=== PATIENT | female | born 1965 | race Caucasian/White ===

== ENCOUNTER 2020-05-03 08:52 | Outpatient (REF) | payer BC, SELFPAY | END 2020-05-03 08:53 | disposition home or self-care (01) | LOC: HO.LAB 08:52 | PROVIDERS: PCP Physician Assistant Medical; Visit Provider Internal Medicine | DX: Z20.828 Contact with and (suspected) exposure to other viral communicable diseases (principal) | CPT/HCPCS: C9803; U0003 ==

== ENCOUNTER 2020-06-27 | Outpatient (REF) | payer BC, SELFPAY | END 2020-06-27 00:01 | disposition home or self-care (01) | LOC: HO.VC | PROVIDERS: Visit Provider Internal Medicine | DX: Z23 Encounter for immunization (principal) | CPT/HCPCS: 0011A ==

== ENCOUNTER 2020-07-18 10:03 | Outpatient (REF) | payer BC, SELFPAY ==
[2020-07-18 14:13] LABS: Estimated Average Glucose 108 mg/dL; Hemoglobin A1c % 5.4 %
== END 2020-07-18 10:04 | disposition home or self-care (01) ==
LOC: HO.10HDL 10:03
PROVIDERS: Visit Provider Physician Assistant Medical
DX: R73.09 Other abnormal glucose (principal)
CPT/HCPCS: 36415; 83036

== ENCOUNTER 2020-07-24 | Outpatient (REF) | payer BC, SELFPAY | END 2020-07-24 00:01 | disposition home or self-care (01) | LOC: HO.VC | PROVIDERS: Visit Provider Internal Medicine | DX: Z23 Encounter for immunization (principal) | CPT/HCPCS: 0012A ==

== ENCOUNTER 2021-05-16 | Outpatient (REF) | payer OTHER, SELFPAY | END 2021-05-16 00:01 | disposition home or self-care (01) | LOC: HO.LAB | PROVIDERS: Visit Provider Internal Medicine | DX: Z13.89 Encounter for screening for other disorder (principal) | CPT/HCPCS: 36415; 87635; C9803 ==

== ENCOUNTER 2021-06-18 12:30 | Outpatient (REF) | payer BC, SELFPAY ==
[2021-06-18 12:52] LABS: Binax Internal Control QC Valid; Binax Now Covid-19 Ag Negative (Negative)
== END 2021-06-18 12:31 | disposition home or self-care (01) ==
LOC: HO.LAB 12:30
PROVIDERS: PCP Physician Assistant Medical; Visit Provider Internal Medicine
DX: Z20.822 Contact with and (suspected) exposure to COVID-19 (principal)
CPT/HCPCS: C9803

== ENCOUNTER 2021-12-25 10:13 | Outpatient (REF) | payer SELFPAY ==
--- NOTE | 2021-12-25 11:11 | MHC.AU.HFU ---
Hearing Instrument Follow-Up- Binaural Date of Visit: 12/25/21 Right Ear: Rod Puller And Coiler: Phonak Model: Michelle P70-UP Serial Number: [id number] Repair Warranty: 11/09/2024 Loss and Damage Warranty: 11/09/2024 Battery Size: 13 Type of Mold: Microsonic shell mold Left Ear: Rod Puller And Coiler: Phonak Model: Michelle P70-UP Serial Number: [id number] Repair Warranty: 11/09/2024 Loss and Damage Warranty: 11/09/2024 Battery Size: 13 Type of Mold: Microsonic shell mold Type of Wax Guard: Follow-Up Summary: Patient reports she has switched back to her old left mold, as the newer left mold was causing pain and sores in the helix area. It is still under warranty. A new impression was taken of the left ear and sent to [employer] for remake. She also reports the right hearing aid has suddenly been sounding higher pitched and tinny. Both hearing aids inspected. Molds were cleaned and retubed. Listening check shows the right hearing aid sounds distorted. It was sent to [facility] [employer] for repair. Patient was provided with a loaner for the right ear (Phonak Michelle P70-UP Trial #[id number]). Recommendations: Patient can be contacted as soon as each piece arrives, as the hearing aid repair will likely come in several weeks before the mold remake. Diagnosis Code(s): Primary Diagnosis: H90.3 Bilateral Sensorineural Hearing Loss Signature: Provider: Jamil Adams, STACE[facility]-A
== END 2021-12-25 10:14 | disposition home or self-care (01) ==
LOC: HO.HAP 10:13
PROVIDERS: Visit Provider Physician Assistant Medical
DX: Z13.89 Encounter for screening for other disorder (principal)

== ENCOUNTER 2022-02-05 11:43 | Outpatient (REF) | payer SELFPAY | END 2022-02-05 11:44 | disposition home or self-care (01) | LOC: HO.HAP 11:43 | PROVIDERS: Visit Provider Physician Assistant Medical | DX: Z13.89 Encounter for screening for other disorder (principal) ==

== ENCOUNTER 2022-02-21 10:02 | Outpatient (REF) | payer SELFPAY ==
--- NOTE | 2022-02-21 15:20 | MHC.AU.HFU ---
Hearing Instrument Follow-Up- Binaural Date of Visit: 02/21/22 Right Ear: Property Underwriter: Phonak Model: Michelle P70-UP Serial Number: [id number] Repair Warranty: 11/09/2024 Loss and Damage Warranty: 11/09/2024 Battery Size: 13 Color: P1 - Sand beige Type of Mold: Microsonic shell mold Dispensed By: [facility] Date of Fittin09/13/2021 Left Ear: Property Underwriter: Phonak Model: Michelle P70-UP Serial Number: [id number] Repair Warranty: 11/09/2024 Loss and Damage Warranty: 11/09/2024 Battery Size: 13 Color: P1 - Sand beige Type of Mold: Microsonic shell mold Dispensed By: [facility] Date of Fittin09/13/2021 Follow-Up Summary: 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 She noted significant improvement in sound quality of the right hearing aid and comfort of the left ear mold. Her right ear mold was also cleaned and retubed. Recommendations:Hearing instrument maintenance in 6 months, or sooner if needed. Patient will call if problems persist. Diagnosis Code(s): Primary Diagnosis: H90.3 Bilateral Sensorineural Hearing Loss Signature: Provider: Jayy Ma CCC-A
== END 2022-02-21 10:03 | disposition home or self-care (01) ==
LOC: HO.HAP 10:02
PROVIDERS: Visit Provider Physician Assistant Medical
DX: Z13.89 Encounter for screening for other disorder (principal)

== ENCOUNTER 2022-07-10 08:02 | Outpatient (REF) | payer SELFPAY ==
--- NOTE | 2022-07-10 08:36 | MHC.AU.HA3 ---
Hearing Instrument Follow-Up- Binaural Date of Visit: 07/10/22 Right Ear: Darinel, Model, Color, Serial Number: Oscar Martinez P 70-UP Maeve Gurrola #[id number] Flight Attendant Repair Warranty: 11/09/2024 [employer] Loss and Damage Warranty: 11/09/2024 [facility] Service Plan: 09/13/2022 Battery Size: 13 Earmold/Dome/CShell/SlimTip:Microsonic shell mold Dispensed By: [facility] Date of Fittin09/13/2021 Left Ear: Make, Model, Color, Serial Number: Oscar Martinez P 70-UP Maeve Gurrola #[id number] Flight Attendant Repair Warranty: 11/09/2024 Flight Attendant Loss and Damage Warranty: 11/09/2024 [facility] Service Plan: 09/13/2022 Battery Size: 13 Earmold/Dome/CShell/SlimTip: Microsonic shell mold Dispensed By: [facility] Date of Fittin09/13/2021 Follow-Up Summary: Fit the new right earmold and patient paid $135.00. She will be using this as a back-up. See note from 07/07/2022 for details. Cleaned both aids, changed tubing. The left earhook broke during the tubing change and was replaced today. Patient was t old today her service agreement ends on 09/13/2022. Provided her the service fee handout and she will consider purchasing the 3 year services agreement. Another maintenance/tubing change appointment was scheduled for 08/27/2022. Recommendations: Please contact our clinic with any questions or concerns. Diagnosis Code(s):Primary Diagnosis: H90.3 Bilateral Sensorineural Hearing Loss Signature:Provider: Humberto Horowitz, [facility]
== END 2022-07-10 08:03 | disposition home or self-care (01) ==
LOC: HO.HAP 08:02
PROVIDERS: Visit Provider Physician Assistant Medical
DX: Z46.1 Encounter for fitting and adjustment of hearing aid (principal); H90.3 Sensorineural hearing loss, bilateral
CPT/HCPCS: V5264

== ENCOUNTER 2022-08-27 08:27 | Outpatient (REF) | payer SELFPAY ==
--- NOTE | 2022-08-27 09:34 | MHC.AU.HFU ---
Hearing Instrument Follow-Up- Binaural Date of Visit: 08/27/22 Right Ear: Phonak Michelle P 70-UP Maeve Beige #[id number] Repair Warranty: 11/09/2024 Loss and Damage Warranty: 11/09/2024 Service Plan: 09/13/2022 Battery Size: 13 Type of Mold: Microsonic shell mold Dispensed By: [facility] Date of Fittin09/13/2021 Left Ear: Phonak Michelle P 70-UP Maeve Beige #[id number] Repair Warranty: 11/09/2024 Loss and Damage Warranty: 11/09/2024 Service Plan: 09/13/2022 Battery Size: 13 Type of Mold: Microsonic shell mold Dispensed By: [facility] Date of Fittin09/13/2021 Follow-Up Summary: Alivia is here for a tubing change before her service plan expires. She has noted some intermittency from her hearing aids, but believes it is due to the hardened tubing. I re-tubed both ear molds, brushed and wiped the hearing aids and microphone ports. Listening check reveals clear sound. Alivia reported improved sound percept and was happy with today's visit. We should send out the hearing aids for repair should the intermittency persists. Alivia indicated understanding. Additional follow-up as needed. Diagnosis Code(s): Primary Diagnosis: H90.3 Bilateral Sensorineural Hearing Loss Signature: Provider: Jamil Bullock, [facility]
== END 2022-08-27 08:28 | disposition home or self-care (01) ==
LOC: HO.HAP 08:27
PROVIDERS: Visit Provider Physician Assistant Medical
DX: Z13.89 Encounter for screening for other disorder (principal)

== ENCOUNTER 2023-12-03 12:58 | Outpatient (REF) | payer BC, SELFPAY ==
--- NOTE | ~2023-12-03 | US_ITS ---
EXAMINATION: US SOFT TISSUE OF THE NECK CLINICAL INFORMATION: Neck nodule. COMPARISON: None available. TECHNIQUE: Linear transducer grayscale and color Doppler examination of the left neck, posterior lateral, nape of neck and lateral neck. FINDINGS: There is a 1.0 x 0.4 x 0.8 cm small lymph node seen posteriorly in the neck with an additional small lymph node measuring 1.1 x 0.3 x 0.8 cm laterally. Both of these nodes have normal fatty cara. US/US soft tiss head and/or neck IMPRESSION: Small benign-appearing lymph nodes in the neck.
== END 2023-12-03 12:59 | disposition home or self-care (01) ==
LOC: HO.US 12:58
PROVIDERS: PCP Internal Medicine; Visit Provider Internal Medicine
DX: R22.1 Localized swelling, mass and lump, neck (principal)
CPT/HCPCS: 76536

== ENCOUNTER 2024-02-29 10:54 | Outpatient (REF) | payer BC, SELFPAY ==
[2024-02-29 10:58] LABS: MANUAL DIFF FLAG NO
[2024-02-29 11:13] LABS: Basophils Percent Auto 0.4 % (0-2); Eosinophils Absolute Auto 0.1 X10*3/uL (0.0-0.4); Eosinophils Percent Auto 2.1 % (0-4); Hematocrit 40.7 % (37.0-47.0); Hemoglobin 13.7 g/dl (12.0-16.0); Imm Gran Abs Auto 0.02 X10*3/uL (0.00-0.03); Imm Gran Pct Auto 0.4 % (0.0-0.4); Lymphocytes Absolute Auto 1.8 X10*3/uL (1.2-4.9); Lymphocytes Percent Auto 34.6 % (20-40); Mean Corpuscular HGB Conc 33.7 g/dl (31.0-35.0); Mean Corpuscular Hemoglobin 30.4 pg (27.0-33.0); Mean Corpuscular Volume 90.4 fL (80.0-98.0); Mean Platelet Volume 11.7 fL (9.4-12.3); Monocytes Absolute Auto 0.5 X10*3/uL (0.1-1.2); Monocytes Percent Auto 9.3 % (2-11); Neutrophils Absolute Auto 2.8 x10*3/uL (2.0-8.3); Neutrophils Percent Auto 53.2 % (45-73); Platelet Count 166 X10*3/uL (160-400); Red Cell Distribution Width 12.6 % (11.0-16.0); White Blood Count 5.2 X10*3/uL (4.8-10.8)
[2024-02-29 11:26] LABS: Alanine Aminotransferase 17 U/L (0-31); Alkaline Phosphatase 56 U/L (39-117); Anion Gap 12 (12-20); Aspartate Amino Transferase 17 U/L (5-31); Bilirubin Total 0.5 mg/dL (0.0-1.0); Blood Urea Nitrogen 16 mg/dL (9-16); Calcium 9.2 mg/dL (8.4-10.2); Carbon Dioxide 25 mmol/L (22-29); Chloride 107 mmol/L (96-108); Cholesterol 210 mg/dL (<200); Estimated Glomerular Filt Rate > 60; Glucose Fasting 108 mg/dL (60-99); HDL Cholesterol 53 mg/dL (>40); LDL Cholesterol Calculated 142 mg/dL (<100); Potassium 3.9 mmol/L (3.3-5.1); Sodium 140 mmol/L (135-145); Total Protein 6.7 g/dL (6.5-8.0); Triglycerides 77 mg/dL (<150)
[2024-02-29 11:27] LABS: Appearance Urine Clear; Color Urine Yellow; Glucose Urine UA Negative (Negative); Leukocyte Esterase Urine Negative (Negative); Nitrite Urine Negative (Negative); PH 5.5 (5.0-9.0); Specific Gravity - Urine >= 1.030 (1.005-1.025); Urine Blood Negative (Negative); Urine Ketones Negative (Negative); Urine Protein Negative (Neg-Trace)
[2024-02-29 11:36] LABS: Bacteria Urine None Seen (None Seen); Hyaline Casts Urine 0-2 /LPF (0-2); RBC Urine 0-2 /HPF (0-2); WBC Urine 0-5 /HPF (0-5)
== END 2024-02-29 10:55 | disposition home or self-care (01) ==
LOC: HO.LNP 10:54
PROVIDERS: Visit Provider Internal Medicine
DX: Z00.00 Encounter for general adult medical examination without abnormal findings (principal)
CPT/HCPCS: 80053; 80061; 81001; 85025

== ENCOUNTER 2024-11-03 08:30 | Outpatient (REF) | payer SELFPAY ==
--- OUTSIDE RECORDS SUMMARY | 2024-11-03 08:42 | XMS_ITS ---
Author Organization Darrian Kelsey MD Address [address] [facility] [address] [place] [phone] Care Team Providers Care Technical Manager Name Role Phone Darrian Kelsey Primary Care Provider REASON FOR VISIT referral Encounters Encounter Location Date Provider Diagnosis Darrian Kelsey MD [address] [place] [address] [place] [phone] 06/14/2024 Darrian Kelsey Plan Of Treatment Next Appt Details Provider Name:Darrian Gasca ier, 02/28/2025 07:00:00 AM, [address] [place] [address], [address], [phone], Provider Name:Darrian Gasca ier, 03/07/2025 08:30:00 AM, [address] [place] [address], [address], [phone], Progress Notes * Marco CASTROOB:1965 (58 yo F)Acc No.[id number]:06/14/2024 Patient:?Alivia CASTRO :1965???Age:58 Y???Sex:Female [address] [facility] [address] * true * Date:? Generated for Printi ng/Faxing/eTransmitting on:?11/03/2024 08:42 AM EDT
--- NOTE | 2024-11-03 10:21 | MHC.AU.HA3 ---
Hearing Instrument Follow-Up- Binaural Date of Visit: 11/03/24 Right Ear: Make, Model, Color, Serial Number: Oscar Jiida P 70-UP SN: [id number] Color: Sand Beige Protective Signal Installer Repair Warranty: 11/09/2024 Protective Signal Installer Loss and Damage Warranty: 11/09/2024 [facility] Service Plan: 09/13/2022 Battery Size: 13 Earmold/Dome/CShell/SlimTip:Microsonic shell mold Dispensed By: [facility] Date of Fittin09/13/2021 Left Ear: Make, Model, Color, Serial Number: Oscar Michelle P 70-UP SN: [id number] Color: Sand Beige Protective Signal Installer Repair Warranty: 11/09/2024 Protective Signal Installer Loss and Damage Warranty: 11/09/2024 [facility] Service Plan: 09/13/2022 Battery Size: 13 Earmold/Dome/CShell/SlimTip: Microsonic shell mold Dispensed By: [facility] Date of Fittin09/13/2021 Follow-Up Summary: Needs new EMs, current pair discolored and ripped around canal portion. Has been re-tubing herself at home. Showed kj FLORES; agreeable to changing EM stuffed casing tier for quicker turn-around time. Impressions taken, bilaterally, without incident. Sent to [facility]. Alivia also inquired about new HAs, does not like this pair. Reportedly friends/family tell her she is missing a lot with these HAs. Unsure if hearing has changed. Recommended updated hearing test, last tested 2020. Recommendations: Patient will be contacted when materials have arrived. Diagnosis Code(s): Primary Diagnosis: H90.3 Bilateral Sensorineural Hearing Loss Signature: Provider: Humberto Bull, [facility]
== END 2024-11-03 08:31 | disposition home or self-care (01) ==
LOC: HO.HAP 08:30
PROVIDERS: Visit Provider Internal Medicine
DX: Z13.89 Encounter for screening for other disorder (principal)

== ENCOUNTER 2024-11-17 08:36 | Outpatient (AMB) | payer BC, SELFPAY ==
--- OUTSIDE RECORDS SUMMARY | 2024-06-14 11:27 | XMS_ITS ---
Author Organization Darrian Kelsey MD Address [address] [place] [address] [place] [phone] Care Team Providers Care Watershed Coordinator Name Role Phone Darrian Kelsey Primary Care Provider [phone] REASON FOR VISIT referral Encounters Encounter Location Date Provider Diagnosis Darrian Kelsey MD [address] [place] [address] [place] [address] [phone] 06/14/2024 Darrian Kelsey Plan Of Treatment Next Appt Details Provider Name:Darrian Gasca ier, 02/28/2025 07:00:00 AM, [address] [place] [address], [address], [phone], Provider Name:Darrian Gasca ier, 03/07/2025 08:30:00 AM, [address] [place] [address], [address], [phone], Progress Notes * Marco CASTROOB:1965 (58 yo F)Acc No.[id number]:06/14/2024 Patient: Roselia Alivia RUSSELL :1965 A ge:58 Y S ex:Female [address] [facility] [place] [address] * true * Date: Generated for Printi ng/Faxing/eTransmitting on: 0 11/17/2024 09:01 AM EDT
--- NOTE | 2024-11-17 08:39 | MHC.OFFVIS ---
Vital Signs 11/17/24 08:41 Height 5 ft 4.5 in Weight 202 lb 13.204 oz BMI 34.3 BP 110/72 Blood Pressure Location Lt brachial Position Sitting Pulse 86 Pulse Source Pulse Oximeter Pulse Oximetry (%) 96 Oxygen Delivery Method Room Air Intake Visit Reasons: Asthma Behavioral Interventionist Required: No Accompanied by: Self / Same As Patient Allergies cephalexin (From Keflex) Allergy (Intermediate, Verified 11/17/24 08:42) vomiting HPI Comments Details: The patient is here for pulmonary evaluation. The patient is a 59 year woman with a known history of asthma presenting with worsening respiratory symptoms. She has been noticing worsening shortness of breath even with minimal activity. She has a hard time with her grandchildren playing with them because she gets very winded. She does have asthma and she does have a rescue inhaler. Currently she is not on a maintenance inhaler. Sometime ago she was told that she had glaucoma. She has not followed up with the eye doctor in many years. She has lost some vision. Therefore will hold off on using any anticholinergics. The patient does have wheezing on exam and she did have tachycardia upon brief walking oximetry. She did have a chest x-ray back in 2019 that I personally reviewed demonstrating no acute disease. In addition to that she has not had pulmonary function studies although she has had difficult time in the past. In addition to that she has did complain of daytime drowsiness. Patient does have an elevated [place] score of 11/24. Therefore she needs to have home sleep study. The patient does have increased cardiovascular risk factors specially with her breathing and also tachycardia. Go ahead and request a home sleep study also PFTs and a chest x-ray. The patient will also undergo blood work. Also to note that she is getting allergy shots. She had been getting allergy shots for many years. Will go ahead and check her allergy levels. She may be a candidate for biologics if she continues to be symptomatic even on maximum respiratory therapy. REPLACED BY [facility] Medical History (Updated 11/17/24 @ 22:37 by Nigel Hamilton MD) DEBI (obstructive sleep apnea) Allergies Asthma Social History (Updated 11/17/24 @ 08:44 by Ro Pate CMA) Patient Tobacco Use Status: Never used Tobacco Review of Systems Const Reports daytime sleepiness, Reports difficulty sleeping and Reports snoring Eyes Reports change in vision ENT Reports nasal discharge Card Denies chest pain and Reports dyspnea on exertion Resp Reports cough, Reports dyspnea on exertion, Reports snoring and Reports wheezing GI Reports no additional complaints Musc Reports myalgias Skin/Breast Denies rash Neuro Reports no additional complaints Anthony/Lymph Reports no additional complaints Aller/Immun Reports wheezing Physical Exam Vital Signs: Last Vital Signs Pulse 86 11/17/24 08:41 BP 110/72 11/17/24 08:41 Pulse Ox 96 11/17/24 08:41 Oxygen Delivery Method Room Air 11/17/24 08:41 BMI result Body Mass Index 34.3 Const General: comfortable HEENT Head: Yes normocephalic Neck Neck: Yes supple Chest Chest palpation & inspection: normal inspection of the chest Resp Effort & Inspection: prolonged expiratory phase Auscultation: wheezes and diminished lung sounds Cardio Heart sounds: S1 normal heart sound present and S2 normal heart sound present GI Palpation (GI): Soft to palpation Skin General skin exam: no rashes or lesions noted Extrem General: Yes no clubbing, cyanosis or edema Assessment & Plan Assessment & Plan (1) Asthma: Code(s): J45.909 - Unspecified asthma, uncomplicated Category: Medical Qualifiers: Asthma severity: moderate Asthma persistence: persistent Asthma complication type: with acute exacerbation Qualified Code(s): J45.41 - Moderate persistent asthma with (acute) exacerbation (2) Allergies: Code(s): T78.40XA - Allergy, unspecified, initial encounter Category: Medical Qualifiers: Encounter type: initial encounter Qualified Code(s): T78.40XA - Allergy, unspecified, initial encounter (3) DEBI (obstructive sleep apnea): Code(s): G47.33 - Obstructive sleep apnea (adult) (pediatric) Category: Medical Plan Home PSG PFTs CXR Start Symbicort No LAMA/MARISOL due to h/o glaucoma bloodwork F/U 2-3 months Orders: Orders Complete Blood Count Auto Diff Today J45.909 - Unspecified asthma, uncomplicated, T78.40XA - Allergy, unspecified, initial encounter Basic Metabolic Panel Today J45.909 - Unspecified asthma, uncomplicated, T78.40XA - Allergy, unspecified, initial encounter Hypersensitive Pneumonitis Prf Today J45.909 - Unspecified asthma, uncomplicated, R91.8 - Other nonspecific abnormal finding of lung field, T78.40XA - Allergy, unspecified, initial encounter Immunoglobulin E Today J45.909 - Unspecified asthma, uncomplicated, T78.40XA - Allergy, unspecified, initial encounter RT home sleep study Today G47.33 - Obstructive sleep apnea (adult) (pediatric), J45.909 - Unspecified asthma, uncomplicated, T78.40XA - Allergy, unspecified, initial encounter AMB Hemoglobin A1c Today J45.909 - Unspecified asthma, uncomplicated, T78.40XA - Allergy, unspecified, initial encounter, Z13.9 - Encounter for screening, unspecified XR chest 2V Today G47.33 - Obstructive sleep apnea (adult) (pediatric), J45.909 - Unspecified asthma, uncomplicated, T78.40XA - Allergy, unspecified, initial encounter PFT pulmonary function test Today G47.33 - Obstructive sleep apnea (adult) (pediatric), J45.909 - Unspecified asthma, uncomplicated, T78.40XA - Allergy, unspecified, initial encounter Medications: New budesonide-formoterol 160-4.5 mcg/actuation (Symbicort) 2 puffs inhalation BID 10.2 grams 11RF 30 days J44.89 - Other specified chronic obstructive pulmonary disease Coding Level of Care Code New Pt Level 4 (39473) Diagnoses Moderate persistent asthma with acute exacerbation J45.41 Asthma severity: moderate Asthma persistence: persistent Asthma complication type: with acute exacerbation Allergy, initial encounter T78.40XA Encounter type: initial encounter DEBI (obstructive sleep apnea) G47.33 Time Spent (min) 40
[2024-11-17 08:41] VITALS: BP 110/72; PULSE 86; O2SAT 96; BMI 34.3
== END 2024-11-17 09:13 | disposition home or self-care (01) ==
LOC: HO.HPS 08:37
PROVIDERS: PCP Internal Medicine; Visit Provider Hospitalist
DX: J45.41 Moderate persistent asthma with (acute) exacerbation (principal); T78.40XA Allergy, unspecified, initial encounter; G47.33 Obstructive sleep apnea (adult) (pediatric)
CPT/HCPCS: 99204

== ENCOUNTER 2024-11-17 09:22 | Outpatient (REF) | payer BC, SELFPAY ==
--- NOTE | ~2024-11-17 | XR_ITS ---
EXAMINATION: XR CHEST CLINICAL INFORMATION: G47.33 - Obstructive sleep apnea (adult) (pediatric) COMPARISON: None available. TECHNIQUE: 2 views of the chest were obtained. FINDINGS: The cardiac, hilar, and mediastinal contours are normal. The lungs are clear bilaterally. There is no pneumothorax or pleural effusion. There is no focal osseous or soft tissue abnormality. XR/XR chest 2V IMPRESSION: No active pulmonary disease. Normal examination Electronically signed by: Christos Boudreaux MD 11/17/2024 09:47 AM EDT
== END 2024-11-17 09:23 | disposition home or self-care (01) ==
LOC: HO.XRAY 09:22
PROVIDERS: PCP Internal Medicine; Visit Provider Hospitalist
DX: G47.33 Obstructive sleep apnea (adult) (pediatric) (principal); T78.40XA Allergy, unspecified, initial encounter; J45.909 Unspecified asthma, uncomplicated
CPT/HCPCS: 71046

== ENCOUNTER → 2024-11-17 09:23 | Outpatient (BNV) | payer BC, SELFPAY | PROVIDERS: PCP Internal Medicine; Visit Provider Radiology Diagnostic Radiology | DX: G47.33 Obstructive sleep apnea (adult) (pediatric) (principal) | CPT/HCPCS: 71046 ==

== ENCOUNTER 2024-11-17 09:38 | Outpatient (REF) | payer BC, SELFPAY ==
[2024-11-17 13:11] LABS: MANUAL DIFF FLAG NO
[2024-11-17 13:18] LABS: Basophils Percent Auto 0.5 % (0-2); Eosinophils Absolute Auto 0.1 X10*3/uL (0.0-0.4); Eosinophils Percent Auto 1.9 % (0-4); Hematocrit 41.6 % (37.0-47.0); Imm Gran Abs Auto 0.01 X10*3/uL (0.00-0.03); Imm Gran Pct Auto 0.2 % (0.0-0.4); Lymphocytes Absolute Auto 1.5 X10*3/uL (1.2-4.9); Lymphocytes Percent Auto 24.8 % (20-40); Mean Corpuscular HGB Conc 33.7 g/dl (31.0-35.0); Mean Corpuscular Hemoglobin 30.4 pg (27.0-33.0); Mean Corpuscular Volume 90.2 fL (80.0-98.0); Mean Platelet Volume 11.4 fL (9.4-12.3); Monocytes Absolute Auto 0.5 X10*3/uL (0.1-1.2); Neutrophils Absolute Auto 3.8 x10*3/uL (2.0-8.3); Neutrophils Percent Auto 64.6 % (45-73); Platelet Count 189 X10*3/uL (160-400); Red Blood Count 4.61 X10*6/uL (4.20-5.50); Red Cell Distribution Width 12.3 % (11.0-16.0); White Blood Count 5.9 X10*3/uL (4.8-10.8)
[2024-11-17 13:40] LABS: Anion Gap 10 (12-20); Blood Urea Nitrogen 10 mg/dL (9-16); Carbon Dioxide 28 mmol/L (22-29); Chloride 107 mmol/L (96-108); Estimated Glomerular Filt Rate > 60; Glucose Random 99 mg/dL (60-115); Sodium 141 mmol/L (135-145)
[2024-11-18 23:09] LABS: Immunoglobulin E 101 kU/L (<OR=114)
[2024-11-24 14:09] LABS: Asperg fumigatus Precip Abs NEGATIVE (NEGATIVE); Micropoly faeni Abs NEGATIVE (NEGATIVE); Pigeon serum Abs NEGATIVE (NEGATIVE); Saccharo pora viridis Abs NEGATIVE (NEGATIVE); Thermo candidus Abs NEGATIVE (NEGATIVE); Thermoa vulgaris #1 NEGATIVE (NEGATIVE)
== END 2024-11-17 09:39 | disposition home or self-care (01) ==
LOC: HO.10HDL 09:38
PROVIDERS: Visit Provider Hospitalist
DX: J45.909 Unspecified asthma, uncomplicated (principal); T78.40XA Allergy, unspecified, initial encounter; R91.8 Other nonspecific abnormal finding of lung field
CPT/HCPCS: 36415; 80048; 82785; 85025; 86331; 86606; 86609

== ENCOUNTER 2024-12-08 08:25 | Outpatient (REF) | payer SELFPAY ==
--- OUTSIDE RECORDS SUMMARY | 2024-09-08 05:15 | XMS_ITS ---
Author Organization Darrian Kelsye MD Address [address] [place], [place] [phone] Care Team Providers Care Director Of Sustainability Name Role Phone Darrian Kelsye Primary Care Provider Allergies Allergen (clinical drug ingredient) Drug/Non Drug Allergy documented on EMR Reaction Allergy Type Onset Date Status Keflex vomiting Drug Allergy Active 12 Hour Nasal [place] Unknown Drug Allergy Active REASON FOR VISIT 6 MO F/U PRE DM Video [phone], c/o temp 99.5 productive cough,headache, sore throat, [...] Status W/U Status Risk Notes Problem Sinusitis (50435091) Sinusitis (J32.9) Active confirmed Vital Signs Height 64.5 in 09/08/2024 Weight 197 lbs 09/08/2024 BMI 33.29 kg/m2 09/08/2024 weight is 197 BP not taken Encounters Encounter Location Date Provider Diagnosis Darrian Kelsey MD [address] [place] [phone] 09/08/2024 Darrian Kelsey Acute asthma J45.909 and [...] Details Provider Name:Darrian ramos, 02/28/2025 07:00:00 AM, [address] [place] [address], [address], [phone], Provider Name:Darrian ramos, 03/07/2025 08:30:00 AM, [address] [place] [address], [phone], Progress Notes * Marco CASTROOB:1965 (59 yo F)Acc No.[id number]:09/08/2024 Progress Notes Patient: Alivia OMER Provider: Chantelle Kelsey MD :1965 A ge:59 Y S ex:Female Date:09/08/2024 Address:[address], [place] Subjective: * Chief Complaints: * 6 MO F/U PRE DM Video [phone]/o temp 99.5 productive cough,headache, sore throat, muscle pain runny nose, congestion x 5 days did not test for Covid * HPI: S ymptom(s): Telehealth L ocation of provider rendering services: [address], [address], L ocation of patient: [...] 09/08/2024 Generated for Ronel iverson/Silvino/Aspenitting on: 0 12/08/2024 08:29 AM EDT History and Physical Notes * HPI (History of Present Illness) Category Sub-Category Detail Notes Category Not es Symptom(s) Telehealth Location of [facility] rendering services:: [address], [address] patient is a 59 [...]
--- OUTSIDE RECORDS SUMMARY | 2024-12-08 08:29 | XMS_ITS | Patient Health Record ---
Author Organization [facility] Address [address] [place] [address] Care Team Providers Care Technical Professional Name Role Phone David Colon MD Primary Care Provider Unavail able Scott Dejesus Unavailable [phone] Reason For Referral No Information Medications Medication SIG (Take, Route, Fr equency, Duration) Notes Start Date End Date Status NexIUM 20 MG 1 capsule Orally Onc e a day for 30 day(s) 01/05/2013 Active Omeprazole 20 MG 1 capsule Orally Onc e a day for 30 day(s) 08/30/2012 Active Plan Of Treatment No Information Insurance Providers Payer Name Payer Address Payer Phone Subscriber Number Group Number Insured Name Patient Relationship to Insured Coverage Start Date Coverage End Date O [employer] CLAIMS [address] [place] [address] [id number] WERO CASTRO Self - patient is the insured
--- OUTSIDE RECORDS SUMMARY | 2024-12-08 08:29 | XMS_ITS | Clinical Summary ---
Author Organization [facility] [place] [address] Phone Care Team Providers Care Cook Seafood Name Role Phone Oma Rodrigues MD Primary Care Provider [phone] Allergies Active Allergy Reactions Criticality Noted Date Comments Cephalexin GI intolerance 04/29/2024 Medications montelukast (SINGULAIR) 10 mg tablet Take 1 tablet (10 mg total) by mouth at bedtime. Active citalopram (CeleXA) 10 mg tablet Take 1 tablet (10 mg total) by mouth 1 (one) time each day. Active albuterol HFA (PROAIR HFA ; PROVENTIL HFA ; VENTOLIN HFA) 90 mcg/actuation inhaler Inhale 2 puffs by mouth every 6 (six) hours if needed for wheezing. Active Surgical History Surgery Date Site/Laterality Comments COLONOSCOPY Medical History Medical History Date Comments Asthma Family History Medical History Relation Name Comments Colon cancer Maternal Grandfather Relation Name Status Comments Maternal Grandfather Social History Tobacco Use Types Packs/Day Years Used Date Smoking Tobacco: Never Smokeless Tobacco: Never Tobacco Cessation:Counseling Given: Not Answered Alcohol Use Standard Drinks/Week Comments Not Currently 0 (1 standard drink = 0.6 oz pur e alcohol) socially Interpersonal Safety Answer Date Record ed Physical Abuse 05/06/2024 Verbal Abuse 05/06/2024 Comments No Sex and Gender Information Value Date Recorded Sex Assigned at Female 04/29/2024 12:13 PM EST Legal Sex Female 11:39 AM EST Gender Identity Not on file Sexual Orientation Not on file Obstetrics History Last Filed Vital Signs Vital Sign Reading Time Taken Comments Blood Pressure 115/71 05/06/2024 2:19 PM EST Pulse 86 05/06/2024 2:19 PM EST Temperature 36.5 C (97.7 F) 05/06/2024 1:29 PM EST Respiratory Rate 22 05/06/2024 2:19 PM EST Oxygen Saturation 97% 05/06/2024 2:19 PM EST Inhaled Oxygen Concentration - - Weight 88 kg (194 lb) 05/06/2024 1:29 PM EST Height 162.6 cm (5' 4 ) 05/06/2024 1:29 PM EST Body Mass Index 33.3 05/06/2024 1:29 PM EST Plan of Treatment Health Maintenance Due Date Last Done Comments Breast Cancer Screening 1965 DTaP,Tdap,and Td Vaccines (1 - Tdap) 08/05/1982 Cervical Cancer Screening: P ap Smear 08/05/1984 Pneumococcal Vaccine: 50+ Ye ars (1 of 1 - PCV) 08/05/2013 Zoster Vaccines (1 of 2) 08/05/2013 COVID-19 Vaccine ( - 2023-2 5 season) 2024 HIV Screening 03/12/2024 Hepatitis C Screening 03/12/2024 Social Influencers of Health Screening 03/12/2024 Depression Screening 05/25/2024 Influenza Vaccine (#1) 2025 Colorectal Cancer Screening: Colonoscopy 05/06/2034 05/06/2024 RSV Immunization Adult Patie nts (1 - 1-dose 75+ series) 08/05/2038 HIB Vaccines Aged Out No longer eligi ble based on patient's age to complete this topic HPV Vaccines Aged Out No longer eligi ble based on patient's age to complete this topic Hepatitis A Vaccines Aged Out No long er eligible based on patient's age to complete this topic Hepatitis B Vaccines Aged Out No long er eligible based on patient's age to complete this topic IPV Vaccines Aged Out No longer eligi ble based on patient's age to complete this topic MMR Vaccines Aged Out No longer eligi ble based on patient's age to complete this topic Meningococcal ACWY Vaccine Aged Out N o longer eligible based on patient's age to complete this topic Meningococcal B Vaccine Aged Out No l onger eligible based on patient's age to complete this topic RSV Immunization Patients Un darling 20 months Aged Out No longer eligible b ased on patient's age to complete this topic Varicella Vaccines Aged Out No longer eligible based on patient's age to complete this topic Procedures Procedure Name Priority Date/Time Associated Diagnosis Comments COLONOSCOPY Routine 05/06/2024 1:58 PM EST Encounter for screening for malignant neoplasm of colon from Last 3 Months or Most Recently Relevant to Health Maintenance Results * COLONOSCOPY Anesthesia - MAC; [facility] ENDOSCOPY (05/06/2024 1:58 PM EST) Anatomical Region Laterality Modality Other 05/06/2024 1:34 PM EST Impressions 05/06/2024 1:59 PM EST - The examined portion of the ileum was normal. - Diverticulosis in the sigmoid colon. - Internal hemorrhoids. - No specimens collected. Recommendation: - Repeat colonoscopy in 10 years for screening purposes. Narrative 05/06/2024 1:59 PM EST [facility] GI Patient Name: Alivia Marrufo Procedure Date: 05/06/2024 1:34 PM Date of : 1965 Age: 58 Gender: Female Note Status: Finalized Attending MD: Oma Rodrigues MD, Procedure Date No Time: 05/06/2024 Procedure: Colonoscopy Indications: Screening for colorectal malignant neoplasm Providers: Oma Rodrigues MD Referring MD: Darrian Kelsey MD Medicines: Propofol per Anesthesia Complications: No immediate complications. Estimated Blood Loss: Estimated blood loss: none. Procedure: Pre-Anesthesia Assessment: - ASA Grade Assessment: II - A patient with mild systemic disease. After I obtained informed consent, the scope was passed under direct vision. Throughout the procedure, the patient's blood pressure, pulse, and oxygen saturations were monitored continuously.The Olympus Pediatric Colonosocpe was introduced through the anus and advanced to the terminal ileum. The colonoscopy was performed without difficulty. The patient tolerated the procedure well. The quality of the bowel preparation was excellent. Findings: The perianal and digital rectal examinations were normal. The terminal ileum appeared normal. A few medium-mouthed diverticula were found in the sigmoid colon. Internal hemorrhoids were found during retroflexion. The hemorrhoids were Grade I (internal hemorrhoids that do not prolapse). Procedure Code(s): --- Professional --- G0121, Colorectal cancer screening; colonoscopy on individual not meeting criteria for high risk Diagnosis Code(s): --- Professional --- Z12.11, Encounter for screening for malignant neoplasm of colon CPT copyright 2020 [employer]. All rights reserved. The codes documented in this report are preliminary and upon certified procedural coder review may be revised to meet current compliance requirements. Oma Rodrigues MD 05/06/2024 1:59:00 PM This report has been signed electronically.Oma Rodrigues MD Number of Addenda: 0 Note Initiated On: 05/06/2024 1:34 PM Scope In: Scope Out: Endoscopy Department at [facility] - [address] [place] [phone] Procedure Note Oma Rodrigues MD - 05/06/2024 [facility] GI Patient Name: Alivia Marrufo Procedure Date: 05/06/2024 1:34 PM Date of : 1965 Age: 58 Gender: Female Note Status: Finalized Attending MD: Oma Rodrigues MD, Procedure Date No Time: 05/06/2024 Procedure: Colonoscopy Indications: Screening for colorectal malignant neoplasm Providers: Oma Rodrigues MD Referring MD: Darrian Kelsey MD Medicines: Propofol per Anesthesia Complications: No immediate complications. Estimated Blood Loss: Estimated blood loss: none. Procedure: Pre-Anesthesia Assessment: - ASA Grade Assessment: II - A patient with mild systemic disease. After I obtained informed consent, the scope was passed under direct vision. Throughout theprocedure, the patient's blood pressure, pulse, and oxygen saturations were monitored continuously.The Olympus Pediatric Colonosocpe was introduced through theanus and advanced to the terminal ileum. The colonoscopy was performed without difficulty. The patient tolerated the procedure well. The quality of thebowel preparation was excellent. Findings: The perianal and digital rectal examinations were normal. The terminal ileum appeared normal. A few medium-mouthed diverticula were found in the sigmoid colon. Internal hemorrhoids were found duringretroflexion. The hemorrhoids were Grade I (internal hemorrhoids that do not prolapse). Procedure Code(s): --- Professional --- G0121, Colorectal cancer screening; colonoscopy on individual not meeting criteria for high risk Diagnosis Code(s): --- Professional --- Z12.11, Encounter for screening for malignantneoplasm of colon CPT copyright 2020 [employer]. All rights reserved. The codes documented in this report are preliminary and upon certified procedural coder reviewmay be revised to meet current compliance requirements. Oma Rodrigues MD 05/06/2024 1:59:00 PM This report has been signed electronically.Oma Rodrigues MD Number of Addenda: 0 Note Initiated On: 05/06/2024 1:34 PM Scope In: Scope Out: Endoscopy Department at [facility] - [address] [place] [phone] IMPRESSION: - The examined portion of the ileum was normal. - Diverticulosis in the sigmoid colon. - Internal hemorrhoids. - No specimens collected. Recommendation: - Repeat colonoscopy in 10 years for screening purposes. Oma Rodrigues MD GI~PROCEDURE ORDERABLES Final Result from Last 3 Months or Most Recently Relevant to Health Maintenance Insurance [facility] Care Teams Cook Seafood Relationship Specialty Start Date End Date Oma Rodrigues MD [address] [place] [id number] PCP - General Gastroenterology 04/29/24
== END 2024-12-08 08:26 | disposition home or self-care (01) ==
LOC: HO.HAP 08:25
PROVIDERS: Visit Provider Internal Medicine
DX: Z46.1 Encounter for fitting and adjustment of hearing aid (principal); H90.3 Sensorineural hearing loss, bilateral
CPT/HCPCS: V5264

== ENCOUNTER 2024-12-14 12:57 | Outpatient (REF) | payer BC, SELFPAY ==
--- OUTSIDE RECORDS SUMMARY | 2024-09-08 05:15 | XMS_ITS ---
Author Organization Darrian Kelsey MD Address [address] [place], [place] [phone] Care Team Providers Care Allied Health Instructor Name Role Phone Darrian Kelsey Primary Care Provider [phone] Allergies Allergen (clinical drug ingredient) Drug/Non Drug Allergy documented on EMR Reaction Allergy Type Onset Date Status Keflex vomiting Drug Allergy Active 12 Hour Nasal [place] Unknown Drug Allergy Active REASON FOR VISIT 6 MO F/U PRE DM Video [phone], c/o temp 99.5 productive cough,headache, sore throat, [...] Status W/U Status Risk Notes Problem Sinusitis (83706553) Sinusitis (J32.9) Active confirmed Vital Signs Height 64.5 in 09/08/2024 Weight 197 lbs 09/08/2024 BMI 33.29 kg/m2 09/08/2024 weight is 197 BP not taken Encounters Encounter Location Date Provider Diagnosis Darrian Kelsey MD [address] [place] [phone] 09/08/2024 Darrian Kelsey Acute asthma J45.909 and [...] Details Provider Name:Darrian ramos, 02/28/2025 07:00:00 AM, [address] [place] [address], [address], [phone], Provider Name:Darrian ramos, 03/07/2025 08:30:00 AM, [address] [place] [address], [phone], Progress Notes * Marco CASTROOB:1965 (59 yo F)Acc No.[id number]:09/08/2024 Progress Notes Patient: Alivia OMER Provider: Chantelle Kelsey MD :1965 A ge:59 Y S ex:Female Date:09/08/2024 Address:[address], [place] Subjective: * Chief Complaints: * 6 MO F/U PRE DM Video [phone]/o temp 99.5 productive cough,headache, sore throat, muscle pain runny nose, congestion x 5 days did not test for Covid * HPI: S ymptom(s): Telehealth L ocation of provider rendering services: [address], [address], L ocation of patient: [...] 09/08/2024 Generated for Ronel iverson/Silvino/Aspenitting on: 0 12/14/2024 01:23 PM EDT History and Physical Notes * HPI (History of Present Illness) Category Sub-Category Detail Notes Category Not es Symptom(s) Telehealth Location of [facility] rendering services:: [address], [address] patient is a 59 [...]
[2024-12-14 07:52] VITALS: PULSE 80; O2SAT 96
--- OUTSIDE RECORDS SUMMARY | 2024-12-14 13:23 | XMS_ITS | Clinical Summary ---
Author Organization [facility] Address [address] [place] [address] Phone Care Team Providers Care Community Health Education Coordinator Name Role Phone Oma Rodrigues MD Primary Care Provider [phone] Allergies Active Allergy Reactions Criticality Noted Date [...] Maintenance Results * COLONOSCOPY Anesthesia - MAC; [facility] ENDOSCOPY (05/06/2024 1:58 PM EST) Anatomical Region [...] malignant neoplasm of colon CPT copyright 2020 [employer]. All rights reserved. The codes documented in this report are preliminary and upon interactive developer review may be revised to meet current compliance requirements. Oma Rodrigues MD 05/06/2024 1:59:00 PM This report has been signed electronically.Oma Rodrigues MD Number of Addenda: 0 Note Initiated On: 05/06/2024 1:34 PM Scope In: Scope Out: Endoscopy Department at [facility] - [address] [place] [phone] Procedure Note Oma Rodrigues MD - 05/06/2024 [...] for malignantneoplasm of colon CPT copyright 2020 [employer]. All rights reserved. The codes documented in this report are preliminary and upon interactive developer reviewmay be revised to meet current compliance requirements. Oma Rodrigues MD 05/06/2024 1:59:00 PM This report has been signed electronically.Oma Rodrigues MD Number of Addenda: 0 Note Initiated On: 05/06/2024 1:34 PM Scope In: Scope Out: Endoscopy Department at [facility] - [address] [place] [phone] IMPRESSION: - The examined portion of the ileum was normal. - Diverticulosis in the sigmoid colon. - Internal hemorrhoids. - No specimens collected. Recommendation: - Repeat colonoscopy in 10 years for screening purposes. Oma Rodrigues MD GI~PROCEDURE ORDERABLES Final Result from Last 3 Months or Most Recently Relevant to Health Maintenance Insurance [employer] Care Teams Community Health Education Coordinator Relationship Specialty Start Date End Date Oma Rodrigues MD [address] [place] [id number] PCP - General Gastroenterology 04/29/24
--- OUTSIDE RECORDS SUMMARY | 2024-12-14 13:23 | XMS_ITS | Patient Health Record ---
Author Organization [facility] Address [address] [place] [address] Care Team Providers Care Buttoner Name Role Phone David Colon MD Primary Care Provider Unavail able Scott Dejesus Unavailable [phone] Reason For Referral No Information Medications Medication [...] O [employer] PROFESSIONAL CLAIMS [address] [place] [address] [id number] WERO CASTRO Self - patient is the insured
--- NOTE | 2024-12-14 14:34 | PFT_ITS ---
Flows: FEV1: 85 % of predicted at 2.08 L FVC: 100 % of predicted at 3.15 L FEV1/FVC: 66 % Bronchodilator response: Present Volumes: Total lung capacity: 103 % of predicted at 5.25 L Residual volume: 119 % of predicted at 2.08 L Slow vital capacity: 95 % of predicted at 3.18 L Expiratory reserve volume: 6 % of predicted at 0.05 L Diffusion capacity: Normal Impression: Amja-ye-ybkrjook obstructive ventilatory defect with positive bronchodilator response. Decreased expiratory reserve volume suggests extrathoracic restriction likely secondary to abdominal obesity. MTDD
== END 2024-12-14 12:58 | disposition home or self-care (01) ==
LOC: HO.RESP 12:57
PROVIDERS: PCP Internal Medicine; Visit Provider Hospitalist
DX: G47.33 Obstructive sleep apnea (adult) (pediatric) (principal); T78.40XA Allergy, unspecified, initial encounter; J45.909 Unspecified asthma, uncomplicated
CPT/HCPCS: 94010; 94640; 94727; 94729

== ENCOUNTER → 2024-12-14 14:34 | Outpatient (BNV) | payer BC, SELFPAY | PROVIDERS: PCP Internal Medicine; Visit Provider Internal Medicine Pulmonary Disease | DX: J98.4 Other disorders of lung (principal) | CPT/HCPCS: 94060; 94727; 94729 ==

== ENCOUNTER 2025-02-01 11:45 | Outpatient (AMB) | payer BC, SELFPAY ==
--- OUTSIDE RECORDS SUMMARY | 2024-09-08 05:15 | XMS_ITS ---
Author Organization Darrian Kelsey MD Address [address] [place], [place] [phone] Care Team Providers Care Teletypesetter Monitor Name Role Phone Darrian Kelsey Primary Care Provider Allergies Allergen (clinical drug ingredient) Drug/Non Drug Allergy documented on EMR Reaction Allergy Type Onset Date Status Keflex vomiting Drug Allergy Active 12 Hour Nasal [place] Unknown Drug Allergy Active REASON FOR VISIT 6 MO F/U PRE DM Video [phone], c/o temp 99.5 productive cough,headache, sore throat, muscle pain runny nose, congestion x 5 days did not test for Covid Medications Medication SIG (Take, Route, Frequency, Duration) Notes Start Date End Date Status Montelukast Sodium 10 MG 1 tablet Orally Once a day Active predniSONE 10 MG 1 tablet with food o r milk Orally 4 tabs for 3 days,3tabs for 3 days, 2 tabs for 3 days, and 1 tab for 3 days for 14 days 09/08/2024 Active Citalopram Hydrobromide 10 MG 1 tablet Orally Once a day Active Amoxicillin-Pot Clavulanate 875-125 MG 1 tablet Orally every 12 hrs for 7 days 09/08/2024 Active Albuterol Sulfate HFA 108 (90 Base) MCG/ACT 1 puff as needed Inhalation every 4 hrs 06/30/2023 Active Albuterol Sulfate HFA 108 (90 Base) MCG/ACT 1 puff as needed Inhalation every 4 hrs for 30 days 09/08/2024 Active Levalbuterol Tartrate 45 MCG/ACT 1 puff as needed Inhalation every 6 hrs 06/30/2023 Active Problems Problem Type SNOMED Code ICD Code Onset Dates Problem Status W/U Status Risk Notes Problem Sinusitis (46631143) Sinusitis (J32.9) Active confirmed Vital Signs Height 64.5 in 09/08/2024 Weight 197 lbs 09/08/2024 BMI 33.29 kg/m2 09/08/2024 weight is 197 BP not taken Encounters Encounter Location Date Provider Diagnosis Darrian Kelsey MD [address] [place] [phone] 09/08/2024 Darrian Kelsey Acute asthma J45.909 and Sinusitis J32.9 Assessments Encounter Date Diagnosis (ICD Code) Assessment Notes Treatment Notes Treatment Clinical Notes Section Notes 09/08/2024 Acute asthma (ICD-10 - J45.909) patient verbalized understandng of medication and directions for use 09/08/2024 Sinusitis (ICD-10 - J32.9) Plan Of Treatment Medication Medication Name Sig Start Date Stop Date Notes predniSONE 10 MG 1 tablet with food o r milk Orally 4 tabs for 3 days,3tabs for 3 days, 2 tabs for 3 days, and 1 tab for 3 days for 14 days 09/08/2024 Amoxicillin-Pot Clavulanate 875-125 MG 1 tablet Orally every 12 hrs for 7 days 09/08/2024 Albuterol Sulfate HFA 108 (9 0 Base) MCG/ACT 1 puff as needed Inhalation every 4 hrs for 30 days 09/08/2024 Treatment Notes Assessment Notes Acute asthma patient verbalized u nderstandng of medication and directions for use Next Appt Details Provider Name:Darrian ramos, 02/28/2025 07:00:00 AM, [address] [place] [address], [address], [phone], Provider Name:Darrian ramos, 03/07/2025 08:30:00 AM, [address] [place] [address], [phone], Progress Notes * Marco CASTROOB:1965 (59 yo F)Acc No.[id number]:09/08/2024 Progress Notes Patient: Alivia OMER Provider: Chantelle Kelsey MD :1965 A ge:59 Y S ex:Female Date:09/08/2024 Address:[address], [place] Subjective: * Chief Complaints: * 6 MO F/U PRE DM Video [phone]/o temp 99.5 productive cough,headache, sore throat, muscle pain runny nose, congestion x 5 days did not test for Covid * HPI: S ymptom(s): Telehealth L ocation of provider rendering services: [address], [address], L ocation of patient: a t address listed in demographics for today's visit, P atient identification confirmed using: VIRIDIANA Munson ame, T elehealth method: T elephone only. Patient not visible to care provider., C onsent: P atient verbally consented to treatment, Patient verbally consented to billing insurance company, Patient informed of any privacy concerns related to method of visit, T otal time spend talking with patient (minutes) 1 8. patient is a 59 yo female audio telehealth visit, here for 6 month follow up visit/ also complaining of ear pain cough sputum and sinus congestion. lost voice. * ROS: G eneral/Constitutional: Denies C hills. D enies F atigue. D enies F ever. D enies H eadache. E NT: Denies S ore throat. R espiratory: Denies C ough. D enies S hortness of breath at rest. G astrointestinal: Denies D iarrhea. D enies N ausea. * Medical History: * Surgical History: * Hospitalization/Major Diagno stic Procedure: * Medications: T akingLevalbuterol Tartrate 45 MCG/ACT Aerosol 1 puff as needed Inhalation every 6 hrs Albuterol Sulfate HFA 108 (90 Base) MCG/ACT Aerosol Solution 1 puff as needed Inhalation every 4 hrs Citalopram Hydrobromide 10 MG Tablet 1 tablet Orally Once a day Montelukast Sodium 10 MG Tablet 1 tablet Orally Once a day Medication List reviewed and reconciled with the patientTaking Levalbuterol Tartrate 45 MCG/ACT Aerosol 1 puff as needed Inhalation every 6 hrs Taking Albuterol Sulfate HFA 108 (90 Base) MCG/ACT Aerosol Solution 1 puff as needed Inhalation every 4 hrs Taking Citalopram Hydrobromide 10 MG Tablet 1 tablet Orally Once a day Taking Montelukast Sodium 10 MG Tablet 1 tablet Orally Once a day Medication List reviewed and reconciled with the patient * Allergies: 1 2 Hour Nasal SprayKeflex: vomitingyes[Allergies Verified] Objective: * Vitals: H t: 64.5, Wt: 197, BMI:33.29, Wt-k.36. weight is 197 BP not taken. Assessment: * Assessment: 1. A cute asthma - J45.909 (Primary) 2 . S inusitis - J32.9 ? Plan: * Treatment: 2. S inusitis Start Amoxicillin-Pot Clavulanate Tablet, 875-125 MG, 1 tablet, Orally, every 12 hrs, 7 days, 14 Tablet. * Procedure Codes: * * Sign off status: Completed true * Provider: Chantelle Kelsey MD Date: 0 09/08/2024 Generated for Ronel iverson/Silvino/Aspenitting on: 0 02/01/2025 02:59 PM EDT History and Physical Notes * HPI (History of Present Illness) Category Sub-Category Detail Notes Category Not es Symptom(s) Telehealth Location of [facility] rendering services:: [address], [address] patient is a 59 yo female audio telehealth visit, here for 6 month follow up visit/ also complaining of ear pain cough sputum and sinus congestion. lost voice. Location of patient:: at address listed in demographics for today's visit Patient identification confirmed using:: Name, Telehealth method:: Telephone only. Rosalina ent not visible to care provider. Consent:: Patient verbally c onsented to treatment, Patient verbally consented to billing insurance company, Patient informed of any privacy concerns related to method of visit Total time spend talking with patient (m inutes): 18
--- OUTSIDE RECORDS SUMMARY | 2024-10-06 05:59 | XMS_ITS ---
Author Organization Darrian Kelsey MD Address [address] [place] [phone] Care Team Providers Care Communications Equipment Installer Name Role Phone Darrian Kelsey Primary Care Provider REASON FOR VISIT medication issue Medications Medication SIG (Take, Route, Fr equency, Duration) Notes Start Date End Date Status predniSONE 10 MG 1 tablet with food o r milk Orally 4 tabs for 3 days,3tabs for 3 days, 2 tabs for 3 days, and 1 tab for 3 days for 14 days 09/08/2024 Active Zithromax Z-Ramsey 250 MG 2 tablet on the f irst day, then 1 tablet daily for 4 days Orally Once a day for 5 day(s) 10/06/2024 Active Encounters Encounter Location Date Provider Diagnosis Darrian Kelsey MD [address] [place] [address] Drive [address] [place] [phone] 10/06/2024 Darrian Kelsey Acute asthma J45.909 Assessments Encounter Date Diagnosis (ICD Code) Assessment Notes Treatment Notes Treatment Clinical Notes Section Notes 10/06/2024 Acute asthma (ICD-10 - J45.909) Plan Of Treatment Medication Medication Name Sig Start Date Stop Date Notes predniSONE 10 MG 1 tablet with food o r milk Orally 4 tabs for 3 days,3tabs for 3 days, 2 tabs for 3 days, and 1 tab for 3 days for 14 days 09/08/2024 Zithromax Z-Ramsey 250 MG 2 tablet on the f irst day, then 1 tablet daily for 4 days Orally Once a day for 5 day(s) 10/06/2024 Next Appt Details Provider Name:Darrian Gasca ier, 02/28/2025 07:00:00 AM, [address], [address], [place], [place], [phone], Provider Name:Darrian Gasca ier, 03/07/2025 08:30:00 AM, [address], [address], [place], [phone], Progress Notes * Marco CASTROOB:1965 (59 yo F)Acc No.[id number]:10/06/2024 Patient: Alivia OMER :1965 A ge:59 Y S ex:Female Address:[address] [place] [address] , [place], [address] * Refills Refill predniSONE Tablet, 10 MG, Orally, 30, 1 tablet with food or milk, 4 tabs for 3 days,3tabs for 3 days, 2 tabs for 3 days, and 1 tab for 3 days, 14 days, Refills=0 Start Zithromax Z-Ramsey Tablet, 250 MG, Orally, 6, 2 tablet on the first day, then 1 tablet daily for 4 days, Once a day, 5 day(s), Refills=0 * true * Date: Generated for Ronel iverson/Silvino/Aspenitting on: 0 02/01/2025 02:59 PM EDT
--- OUTSIDE RECORDS SUMMARY | 2024-11-24 05:06 | XMS_ITS ---
Author Organization Darrian Kelsey MD Address [address] [place] [address] [place] [phone] Care Team Providers Care International Account Representative Name Role Phone Darrian Kelsey Primary Care Provider REASON FOR VISIT referral Encounters Encounter Location Date Provider Diagnosis Darrian Kelsey MD [address] [place] [address] [place] [phone] 11/24/2024 Darrian Kelsey Plan Of Treatment Next Appt Details Provider Name:Darrian Gasca ier, 02/28/2025 07:00:00 AM, [address] [place] [address], [address], [phone], Provider Name:Darrian Gasca ier, 03/07/2025 08:30:00 AM, [address] [place] [address], [address], [phone], Progress Notes * Marco CASTROOB:1965 (59 yo F)Acc No.[id number]:11/24/2024 Patient: Roselia Alivia RUSSELL :1965 A ge:59 Y S ex:Female [facility] [facility] [place] [address] * true * Date: Generated for Printi ng/Faxing/eTransmitting on: 0 02/01/2025 02:58 PM EDT
--- OUTSIDE RECORDS SUMMARY | 2024-12-20 07:45 | XMS_ITS ---
Author Organization Darrian Kelsey MD Address [address] [place] [phone] Care Team Providers Care Jumpbasting Collar Baster Name Role Phone Darrian Kelsey Primary Care Provider [phone] Allergies Allergen (clinical drug ingredient) Drug/Non Drug Allergy documented on EMR Reaction Allergy Type Onset Date Status Keflex vomiting Drug Allergy Active 12 Hour Nasal Welda Unknown Drug Allergy Active REASON FOR VISIT SCIATICA PAIN DOWN LEG, BACK right side 4 days Medications Medication SIG (Take, Route, Frequency, Duration) Notes Start Date End Date Status Levalbuterol Tartrate 45 MCG/ACT 1 puff as needed Inhalation every 6 hrs 06/30/2023 Active Albuterol Sulfate HFA 108 (9 0 Base) MCG/ACT 1 puff as needed Inhalation every 4 hrs for 30 days 09/08/2024 Active Cyclobenzaprine HCl 5 MG 1 tablet at bed time as needed Orally twice a day for 10 days 12/20/2024 Active dexAMETHasone 4 MG 1 tablet Orally twic e a day for 5 days 12/20/2024 Active Zithromax Z-Ramsey 250 MG 2 tablet on the irst day, then 1 tablet daily for 4 days Orally Once a day for 5 day(s) 12/20/2024 Active Amoxicillin-Pot Clavulanate 875-125 MG 1 tablet Orally every 12 hrs for 7 days 09/08/2024 Active Montelukast Sodium 10 MG TAKE 1 TABLET B Y MOUTH EVERY DAY FOR 90 DAYS for 90 Active Citalopram Hydrobromide 10 MG TAKE 1 TAB LET BY MOUTH EVERY DAY FOR 90 DAYS for 90 Active Problems Problem Type SNOMED Code ICD Code Onset Dates Problem Status W/U Status Risk Notes Problem Sciatica (68262897) Sciatica (M54.30) Active confirmed Vital Signs Blood pressure systolic 92 mm Hg 12/21/19 25 Blood pressure diastolic 60 mm Hg 025 Height 64.5 in 12/20/2024 Weight 205 lbs 12/20/2024 BMI 34.64 kg/m2 12/20/2024 weight is up 8 pounds since 09-08-24 Encounters Encounter Location Date Provider Diagnosis Darrian Kelsey MD [address] [place] [phone] 12/20/2024 Darrian Kelsey Sciatica M54.30 Assessments Encounter Date Diagnosis (ICD Code) Assessment Notes Treatment Notes Treatment Clinical Notes Section Notes 12/20/2024 Sciatica (ICD-10 - M54.30) patient verbalized understandingof medication and directions for use 12/20/2024 Other patient verbali zed understanding of medication and directions for use Plan Of Treatment Medication Medication Name Sig Start Date Stop Date Notes Cyclobenzaprine HCl 5 MG 1 tablet at bed time as needed Orally twice a day for 10 days 12/20/2024 dexAMETHasone 4 MG 1 tablet Orally twic e a day for 5 days 12/20/2024 Zithromax Z-Ramsey 250 MG 2 tablet on the irst day, then 1 tablet daily for 4 days Orally Once a day for 5 day(s) 12/20/2024 Treatment Notes Assessment Notes Sciatica patient verbalized u nderstandingof medication and directions for use Other patient verbalized u nderstanding of medication and directions for use Next Appt Details Provider Name:Darrian ramos, 02/28/2025 07:00:00 AM, [address] [place] [address], [place] [address], [place], [place], [phone], Provider Name:Darrian ramos, 03/07/2025 08:30:00 AM, [address] [place] [address], [place] [address], [place], [place], [phone], Progress Notes * Marco CASTROOB:1965 (59 yo F)Acc No.[id number]:12/20/2024 Progress Notes Patient: Alivia OMER Provider: Chantelle Kelsey MD :1965 A ge:59 Y S ex:Female Date:12/20/2024 Address:[address] [place] [address] [id number] Subjective: * Chief Complaints: * S CIATICA PAIN DOWN LEG, BACK right side 4 days * HPI: S ymptom(s): patient is a 59 yo female with complaint pain down leg / is starting to get better. trouble sleeeping. no pain in back. * ROS: G eneral/Constitutional: Denies C hills. D enies F atigue. D enies F ever. D enies H eadache. E NT: Denies S ore throat. R espiratory: Denies C ough. D enies S hortness of breath at rest. D enies S hortness of breath with exertion. G astrointestinal: Denies D iarrhea. D enies N ausea. * Medical History: * Surgical History: * Hospitalization/Major Diagno stic Procedure: * Medications: T akingLevalbuterol Tartrate 45 MCG/ACT Aerosol 1 puff as needed Inhalation every 6 hrs Albuterol Sulfate HFA 108 (90 Base) MCG/ACT Aerosol Solution 1 puff as needed Inhalation every 4 hrs Amoxicillin-Pot Clavulanate 875-125 MG Tablet 1 tablet Orally every 12 hrs Montelukast Sodium 10 MG Tablet TAKE 1 TABLET BY MOUTH EVERY DAY FOR 90 DAYS Citalopram Hydrobromide 10 MG Tablet TAKE 1 TABLET BY MOUTH EVERY DAY FOR 90 DAYS Medication List reviewed and reconciled with the patientTaking Levalbuterol Tartrate 45 MCG/ACT Aerosol 1 puff as needed Inhalation every 6 hrs Taking Albuterol Sulfate HFA 108 (90 Base) MCG/ACT Aerosol Solution 1 puff as needed Inhalation every 4 hrs Taking Amoxicillin-Pot Clavulanate 875-125 MG Tablet 1 tablet Orally every 12 hrs Taking Montelukast Sodium 10 MG Tablet TAKE 1 TABLET BY MOUTH EVERY DAY FOR 90 DAYS Taking Citalopram Hydrobromide 10 MG Tablet TAKE 1 TABLET BY MOUTH EVERY DAY FOR 90 DAYS Medication List reviewed and reconciled with the patient * Allergies: 1 2 Hour Nasal SprayKeflex: vomitingyes[Allergies Verified] Objective: * Vitals: H t: 64.5, Wt: 205, BMI:34.64, BP:92/60, Wt-k.99. weight is up 8 pounds since 09-08-24. * Examination: G eneral Examination: GENERAL APPEARANCE: a lert, well hydrated, in no distress.? SKIN: g ood turgor. NEUROLOGIC: a bnormal with positive straight leg raising on right. dtrs and strength normal. Assessment: * Assessment: 1. S [facility] - M54.30 (Primary) Plan: * Treatment: 2. O thers Start Zithromax Z-Ramsey Tablet, 250 MG, 2 tablet on the first day, then 1 tablet daily for 4 days, Orally, Once a day, 5 day(s), 6, Refills 0. Notes: patient verbalized understanding of medication and directions for use * Procedure Codes: * * Sign off status: Completed true * Provider: Chantelle Kelsey MD Date: 0 12/20/2024 Generated for Ronel iverson/Silvino/eTransmitting on: 0 02/01/2025 02:58 PM EDT History and Physical Notes * HPI (History of Present Illness) Category Sub-Category Detail Notes Category Not es Symptom(s) patient is a 59 yo female with complaint pain down leg / is starting to get better. trouble sleeeping. no pain in back. Examination Category Sub-Category Detail Notes Category Not es General Examination GENERAL APPEARANCE: alert, w ell hydrated, in no distress NEUROLOGIC: abnormal with positi ve straight leg raising on right. dtrs and strength normal SKIN: good turgor
--- OUTSIDE RECORDS SUMMARY | 2024-12-22 05:58 | XMS_ITS ---
Author Organization Darrian Kelsey MD Address [address] [place] [phone] Care Team Providers Care Salesperson Pianos And [employer]gans Name Role Phone Darrian Kelsey Primary Care Provider REASON FOR VISIT med isusue Medications Medication SIG (Take, Route, Frequency, Duration) Notes Start Date End Date Status Cyclobenzaprine HCl 5 MG 1 tablet at bed time as needed Orally twice a day for 10 days 12/20/2024 Active Encounters Encounter Location Date Provider Diagnosis Darrian Kelsey MD [address] [place] [address] Drive [address] [place] [phone] 12/22/2024 Darrian Kelsey Sciatica M54.30 Assessments Encounter Date Diagnosis (ICD Code) Assessment Notes Treatment Notes Treatment Clinical Notes Section Notes 12/22/2024 Sciatica (ICD-10 - M54.30) Plan Of Treatment Medication Medication Name Sig Start Date Stop Date Notes Cyclobenzaprine HCl 5 MG 1 tablet at bed time as needed Orally twice a day for 10 days 12/20/2024 Next Appt Details Provider Name:Darrian ramos, 02/28/2025 07:00:00 AM, [address] [place] [address], [address], [phone], Provider Name:Darrian ramos, 03/07/2025 08:30:00 AM, [address] [place] [address], [address], [phone], Progress Notes * Marco CASTROOB:1965 (59 yo F)Acc No.[id number]:12/22/2024 Patient: Alivia OMER :1965 A ge:59 Y S ex:Female Address:[address] [place] [address] [address] , [place], [address] * Refills Refill Cyclobenzaprine HCl Tablet, 5 MG, Orally, 20 Tablet, 1 tablet at bedtime as needed, twice a day, 10 days * true * Date: Generated for Ronel iverson/Silvino/Aspenitting on: 0 02/01/2025 02:58 PM EDT
--- OUTSIDE RECORDS SUMMARY | 2025-02-01 14:58 | XMS_ITS | Patient Health Record ---
Author Organization [facility] Address [address] [place] [address] Care Team Providers Care Vp Research Name Role Phone David Colon MD Primary Care Provider Unavail able Scott Dejesus Unavailable [phone] Reason For Referral No Information Medications Medication [...] O [employer] CLAIMS [address] [place] [address] [id number] WERO CASTRO Self - patient is the insured
--- OUTSIDE RECORDS SUMMARY | 2025-02-01 14:59 | XMS_ITS | Patient Health Record ---
Author Organization Darrian Kelsey MD Address [address] [place], [place] [address] Care Team Providers Care Shellfish Dredge Operator Name Role Phone Darrian Kelsey Primary Care Provider Allergies Allergen (clinical drug ingredient) Drug/Non Drug Allergy documented on EMR Reaction Allergy Type Onset Date Status Keflex vomiting Drug Allergy Active 12 Hour Nasal [place] Unknown Drug Allergy Active Results Component Value Reference Range Notes Complete Blood Count Auto Di ff Reviewed date:02/29/2024 12:01:16 PM Interpretation: Performing Lab:[facility], [address] [place] [phone] Notes/Report: White Blood Count 5.2 4.8-10.8 X10*3/uL Red Blood Count 4.50 4.20-5.50 X10*6/uL Hemoglobin 13.7 12.0-16.0 g/dl Hematocrit 40.7 37.0-47.0 % Mean Corpuscular Volume 90.4 80.0-98.0 fL Mean Corpuscular Hemoglobin 30.4 27.0-33.0 pg Mean Corpuscular HGB Conc 33.7 31.0-35.0 g/dl Red Cell Distribution Width 12.6 11.0-16.0 % Platelet Count 166 160-400 X10*3/uL Mean Platelet Volume 11.7 9.4-12.3 fL Neutrophils Percent Auto 53.2 45-73 % Imm Gran Pct Auto 0.4 0.0-0.4 % Lymphocytes Percent Auto 34.6 20-40 % Monocytes Percent Auto 9.3 2-11 % Eosinophils Percent Auto 2.1 0-4 % Basophils Percent Auto 0.4 0-2 % NRBC Pct Auto 0.0 0.0-0.2 /100WBC Neutrophils Absolute Auto 2.8 2.0-8.3 x10*3/u L Imm Gran Abs Auto 0.02 0.00-0.03 X10*3/uL Lymphocytes Absolute Auto 1.8 1.2-4.9 X10*3/u L Monocytes Absolute Auto 0.5 0.1-1.2 X10*3/uL Eosinophils Absolute Auto 0.1 0.0-0.4 X10*3/u L Basophils Absolute Auto 0.0 0.0-0.2 X10*3/uL NRBC Abs Auto 0.000 0.0-0.012 X10*3/uL Comprehensive [place]. Panel Fa st Reviewed date:02/29/2024 12:00:59 PM Interpretation: Performing Lab:[address] [phone] Notes/Report: Sodium 140 135-145 mmol/L Potassium 3.9 3.3-5.1 mmol/L Chloride 107 96-108 mmol/L Carbon Dioxide 25 22-29 mmol/L Anion Gap 12 12-20 Blood Urea Nitrogen 16 9-16 mg/dL Creatinine 0.78 0.5-1.4 mg/dL Estimated Glomerular Filt Rate > 60 NOTE: For -[place] individuals, multiply the result by 1.210. Chronic Kidney Disease: Estimated GFR < 60 mL/min/1.73m2 Severe Kidney Disease: Estimated GFR < 15 mL/min/1.73m2 Glucose Fasting 108 60-99 mg/dL A fasting glucose from 100-125 mg/dl is considered impaired (pre-diabetes). Calcium 9.2 8.4-10.2 mg/dL Bilirubin Total 0.5 0.0-1.0 mg/dL Aspartate Amino Transferase 17 5-31 U/L Alanine Aminotransferase 17 0-31 U/L Total Protein 6.7 6.5-8.0 g/dL Albumin Level 4.0 3.5-5.0 g/dL Alkaline Phosphatase 56 39-117 U/L Lipid Panel Reviewed date:02/29/2024 12:01:44 PM Interpretation: Performing Lab:[facility], [address] [place] [phone] Notes/Report: Triglycerides 77 <150 mg/dL Desirable Triglyceride: less than 150 mg/dL Borderline High Triglyceride 150-199 mg/dL High Triglyceride: 200-499 mg/dL Very High Triglyceride: greater than or equal to 5OO mg/dL Cholesterol 210 <200 mg/dL Desirable Cholesterol: less than 200 mg/dL Borderline High Cholesterol: 200-239 mg/dL High Cholesterol: greater than 239 mg/dL LDL Cholesterol Calculated 142 <100 mg/dL Desirable LDL: less than 100 mg/dL Near Optimal/Above Optimal LDL: 110-129 mg/dL Borderline High LDL: 130-159 mg/dL High LDL: 160-189 mg/dL Very High LDL: greater than or equal to 190 mg/dL HDL Cholesterol 53 >40 mg/dL Desirable HDL: greater than 40 mg/dL Note: This HDL assay may give artificially low results in patients with liver disease. UA ClnCatch+Micro w/rflx Cul t Reviewed date:02/29/2024 12:01:31 PM Interpretation: Performing Lab:[facility], [address] [place] [phone] Notes/Report: [id number] Urine, Clean Catch Color Urine Yellow Appearance Urine Clear PH 5.5 5.0-9.0 Glucose Urine UA Negative Negative mg/dL Urine Blood Negative Negative Specific [place] - Urine >= 1.030 1.005-1.025 Urine Protein Negative Neg-Trace mg/dL Urine Ketones Negative Negative mg/dL Nitrite Urine Negative Negative Leukocyte Esterase Urine Negative Negative RBC Urine 0-2 0-2 /HPF WBC Urine 0-5 0-5 /HPF Squamous Epithelial Cell Urine 3-5 0-2 /HPF Bacteria Urine None Seen None Seen Hyaline Casts Urine 0-2 0-2 /LPF XR chest 2V Reviewed date:11/17/2024 12:52:15 PM Interpretation: Performing Lab: Notes/Report: [address] [address] XRay Report Signed Patient: Alivia Marrufo MR#: [id number] [birth year] : 1965 Acct:[id number] Age/Sex: 59 / F ADM Date: 11/17/24 Loc: [facility] Attending Dr: Nigel Hamilton MD Ordering Physician: Nigel Hamilton MD Date of Service: 11/17/24 Procedure(s): XR chest 2V Accession Number(s): [id number] cc: Darrian Kelsey MD; Nigel Hamilton MD EXAMINATION: XR CHEST CLINICAL INFORMATION: G47.33 - Obstructive sleep apnea (adult) (pediatric) COMPARISON: None available. TECHNIQUE: 2 views of the chest were obtained. FINDINGS: The cardiac, hilar, and mediastinal contours are normal. The lungs are clear bilaterally. There is no pneumothorax or pleural effusion. There is no focal osseous or soft tissue abnormality. XR/XR chest 2V IMPRESSION: No active pulmonary disease. Normal examination Electronically signed by: Christos Boudreaux MD 11/17/2024 09:47 AM EDT RP Dictated By: Christos Boudreaux MD Signed By: <Electronically signed by Christos Boudreaux MD in OV> 11/17/2447 DD/ 9 TD/TT: 11/17/24935 Mailer Apprentice: [place] [address] XRay Report Signed Patient: Christiano Marrufo MR#: [id number] [birth year] : 1965 Acct:[id number] Age/Sex: 59 / F ADM Date: 11/17/24 Loc: [facility] Attending Dr: Nigel Hamilton MD Ordering Physician: Nigel Hamilton MD Date of Service: 11/17/24 Procedure(s): XR [address] 2V Accession Number(s): [id number] cc: Darrian Kelsey MD; Nigel Hamilton MD EXAMINATION: XR CHEST CLINICAL INFORMATION: G47.33 - Obstructive sleep apnea (adult) (pediatric) COMPARISON: None available. TECHNIQUE: 2 views of the chest were obtained. FINDINGS: The cardiac, hilar, and mediastinal contours are normal. The lungs are clear bilaterally. There is no pneumothorax or pleural effusion. There is no focal osseous or soft tissue abnormality. XR/XR chest 2V IMPRESSION: No active pulmonary disease. Normal examination Electronically maykel d by: Christos Boudreaux MD 11/17/2024 09:47 AM EDT RP Dictated By: Christos Boudreaux MD Signed By: <Electronically signed by Christos Boudreaux MD in OV> 11/17/24946 DD/ 9 TD/TT: 11/17/24935 Mailer Apprentice: Reason For Referral Reason please felicitas and adore bermudez ins referral needed Diagnosis 1 History of asthma (Z 87.09) Referral Organization Darrian Kelsey MD Referring Provider First Name Darrian Referring Provider Last Name Low Referring Provider Speciality Internal M edicine Referred Provider NIGEL HAMILTON Referred Provider Specialty Pulmonary Di seases General Notes Tashia Jones 0 09/15/2024 09:11:59 AM >info faxedRobert Annette 09/26/2024 03:24:43 PM >patient is aware of appt Referral Priority Routine Referral Appointment Date 01/30/2025 Medications Medication SIG (Take, Route, Frequency, Duration) [...] DAY FOR 90 DAYS for 90 Active Immunizations Vaccine Route Administration Date Status [...] ast year? No Points 0 Interpretation Negative Problems Problem Type SNOMED Code ICD Code Onset Dates Problem Status W/U Status Risk Notes Problem Sciatica (40943091) Sciatica (M54.30) Active confirmed Problem Sinusitis (39666016) Sinusitis (J32.9) Active confirmed Problem 09708981 Dysthymia (F34.1) Active confirmed Problem 861022665 History of asthm a (Z87.09) Active confirmed Problem 156102088 Acute asthma (J45.909) Active confirmed Problem 37028302 Stress incontinence in female (N39.3) Active confirmed Vital Signs Blood pressure diastolic 60 mm Hg 12/20/2024 susie ght is up 8 pounds since 09-08-24 Height 64.5 in 12/20/2024 weight is up 8 pounds since 09-08-24 Blood pressure systolic 92 mm Hg 12/20/2024 weig ht is up 8 pounds since 09-08-24 Weight 205 lbs 12/20/2024 weight is up 8 pounds since 09-08-24 BMI 34.64 kg/m2 12/20/2024 weight is up 8 pounds since 09-08-24 Encounters Encounter Location Date Provider Diagnosis Darrian Kelsey MD [address] [place] [address] Drive [address] [place] [id number] 03/03/2024 Darrian Kelsey History of asthma Z87.09 ; Annual physical exam Z00.00 ; Stress incontinence in female N39.3 ; Pre-diabetes R73.03 ; Dysthymia F34.1 and Depression screening Z13.31 Darrian Kelsey MD [address] [place] [id number] 02/29/2024 Darrian Kelsey Blood tests for routine general physical examination Z00.00 Darrian Kelsey MD [address] [place] [address] Drive [address] [place] [id number] 09/08/2024 Darrian Kelsey Acute asthma J45.909 and Sinusitis J32.9 Darrian Kelsey MD [address] [place] [address] Drive [address] [place] [id number] 12/20/2024 Darrian Kelsey Sciatica M54.30 Darrina Kelsey MD [address] [place] [id number] 06/14/2024 Darrian Kelsey MD [address] [place] [id number] 10/06/2024 Darrian Kelsey Acute asthma J45.909 Darrian Kelsey MD [address] [place] [id number] 11/24/2024 Darrian Kelsey MD [address] [place] [id number] 12/22/2024 Darrian Kelsey Sciatica M54.30 Assessments Encounter Date Diagnosis (ICD Code) Assessment Notes Treatment Notes Treatment Clinical Notes Section Notes 03/03/2024 History of asthma (ICD-10 - Z87.09) hardly ever uses inhaler/ told her to use it before exercise, will continue current regiment 03/03/2024 Annual physical exam (ICD-10 - Z00.00) labs reviewed and discussed with patient 02/29/2024 Blood tests for routine general physical examination (ICD-10 - Z00.00) 09/08/2024 Acute asthma (ICD-10 - J45.909) patient verbalized understandng of medication and directions for use 09/08/2024 Sinusitis (ICD-10 - J32.9) 12/20/2024 Sciatica (ICD-10 - M54.30) patient verbalized understandingof medication and directions for use 10/06/2024 Acute asthma (ICD-10 - J45.909) 12/22/2024 Sciatica (ICD-10 - M54.30) 03/03/2024 Stress incontinence in female (ICD-10 - N39.3) is contemplating surgery 03/03/2024 Pre-diabetes (ICD-10 - R73.03) needs to lose weight 03/03/2024 Dysthymia (ICD-10 - F34.1) doing better on meds, will continue current regiment 03/03/2024 Depression screening (ICD-10 - Z13.31) negative screen 12/20/2024 Other patient verbali zed understanding of medication and directions for use Plan Of Treatment Pending Test Test Name Order Date US soft tiss head and/or neck 11/19/2023 Next Appt Details Provider Name:Darrian Gasca ier, 02/28/2025 07:00:00 AM, [address], [address], [place], [place], [phone], Provider Name:Darrian Gasca ier, 03/07/2025 08:30:00 AM, [address], [address], [place], [place], [phone], Insurance Providers Payer Name Payer Address Payer Phone Subscriber Number Group Number Insured Name Patient Relationship to Insured Coverage Start Date Coverage End Date [employer] [facility] [address] [place], [place] [phone] [id number] Alivia Marrufo Self - patient is the insured
--- OUTSIDE RECORDS SUMMARY | 2025-02-01 14:59 | XMS_ITS | Clinical Summary ---
Author Organization [facility] Address [address] [place] [address] Phone Care Team Providers Care Asphalt Screed Operator Name Role Phone Oma Rodrigues MD Primary Care Provider [phone] Allergies Active Allergy Reactions Criticality Noted Date [...] 08/05/2013 Zoster Vaccines (1 of 2) 08/05/2013 HIV Screening 03/12/2024 Hepatitis C Screening 03/12/2024 Social Influencers of Health Screening 03/12/2024 Depression Screening 05/25/2024 COVID-19 Vaccine (1 - 2023-2 5 season) 2025 Influenza Vaccine (#1) 2025 Colorectal Cancer Screening: [...] Maintenance Results * COLONOSCOPY Anesthesia - MAC; [facility]COPY (05/06/2024 1:58 PM EST) Anatomical Region Laterality Modality Other 05/06/2024 1:34 PM EST Impressions 05/06/2024 1:59 PM EST - The examined portion of the ileum was normal. - Diverticulosis in the sigmoid colon. - Internal hemorrhoids. - No specimens collected. Recommendation: - Repeat colonoscopy in 10 years for screening purposes. Narrative 05/06/2024 1:59 PM EST [facility] GI Patient Name: Alivia Marrufo Procedure Date: [...] malignant neoplasm of colon CPT copyright 2020 [employer]. All rights reserved. The codes documented in this report are preliminary and upon digester hand review may be revised to meet current compliance requirements. Oma Rodrigues MD 05/06/2024 1:59:00 PM This report has been signed electronically.Oma Rodrigues MD Number of Addenda: 0 Note Initiated On: 05/06/2024 1:34 PM Scope In: Scope Out: Endoscopy Department at [facility] - [address] [place] [phone] Procedure Note Oma Rodrigues MD - 05/06/2024 [facility] GI Patient Name: Alivia Marrufo Procedure Date: [...] for malignantneoplasm of colon CPT copyright 2020 [employer]. All rights reserved. The codes documented in this report are preliminary and upon digester hand reviewmay be revised to meet current compliance requirements. Oma Rodrigues MD 05/06/2024 1:59:00 PM This report has been signed electronically.Oma Rodrigues MD Number of Addenda: 0 Note Initiated On: 05/06/2024 1:34 PM Scope In: Scope Out: Endoscopy Department at [facility] - [address] [place] [phone] IMPRESSION: - The examined portion of the ileum was normal. - Diverticulosis in the sigmoid colon. - Internal hemorrhoids. - No specimens collected. Recommendation: - Repeat colonoscopy in 10 years for screening purposes. Oma Rodrigues MD GI~PROCEDURE ORDERABLES Final Result from Last 3 Months or Most Recently Relevant to Health Maintenance Insurance [facility] Care Teams Asphalt Screed Operator Relationship Specialty Start Date End Date Oma Rodrigues MD [address] [place] [id number] PCP - General Gastroenterology 04/29/24
== END 2025-02-01 11:46 | disposition home or self-care (01) ==
LOC: HO.HMGAL 11:45
PROVIDERS: PCP Internal Medicine; Visit Provider Registered Nurse Emergency
DX: J30.89 Other allergic rhinitis (principal)
CPT/HCPCS: 95117; 95165

== ENCOUNTER → 2025-02-21 13:01 | Outpatient (REF) | payer BC, SELFPAY ==
--- OUTSIDE RECORDS SUMMARY | 2024-10-06 05:59 | XMS_ITS ---
Author Organization Darrian Kelsey MD Address [address] [place] [phone] Care Team Providers Care Snack Foods Mixer Operator Name Role Phone Darrian Kelsey Primary Care Provider [phone] REASON FOR VISIT medication issue Medications Medication [...] Location Date Provider Diagnosis Darrian Kelsey MD [address] [place] [address] Drive [address] [place] [phone] 10/06/2024 Darrian Kelsey Acute asthma J45.909 Assessments [...] 07:00:00 AM, [address], [address], [place], [place], [phone], Provider Name:Darrian Gasca ier, 03/07/2025 08:30:00 AM, [address], [address], [place], [phone], Progress Notes * Marco CASTROOB:1965 (59 yo F)Acc No.[id number]:10/06/2024 Patient: Alivia OMER :1965 A ge:59 Y S ex:Female Address:[address] [place] [address] , [place], [address] * Refills Refill predniSONE Tablet, 10 MG, [...] Date: Generated for Ronel iverson/Silvino/Aspenitting on: 0 02/21/2025 02:12 PM EDT
--- OUTSIDE RECORDS SUMMARY | 2024-11-24 05:06 | XMS_ITS ---
Author Organization Darrian Kelsey MD Address [address] [place] [address] [place] [phone] Care Team Providers Care Assistant Professor Of Education Name Role Phone Darrian Kelsey Primary Care Provider REASON FOR VISIT referral Encounters Encounter Location Date Provider Diagnosis Darrian Kelsey MD [address] [place] [address] [place] [phone] 11/24/2024 Darrian Kelsey Plan Of Treatment Next Appt Details Provider Name:Darrian Gasca ier, 02/28/2025 07:00:00 AM, [address] [place] [address], [address], [phone], Provider Name:Darrian Gasca ier, 03/07/2025 08:30:00 AM, [address] [place] [address], [address], [phone], Progress Notes * Marco CASTROOB:1965 (59 yo F)Acc No.[id number]:11/24/2024 Patient: Roselia Alivia RUSSELL :1965 A ge:59 Y S ex:Female [address] [facility] [place], [address] * true * Date: Generated for Printi ng/Faxing/eTransmitting on: 0 02/21/2025 02:12 PM EDT
--- OUTSIDE RECORDS SUMMARY | 2024-12-20 07:45 | XMS_ITS ---
Author Organization Darrian Kelsey MD Address [address] [place], [place] [phone] Care Team Providers Care Guest Services Associate Name Role Phone Darrian Kelsey Primary Care Provider Allergies Allergen (clinical drug ingredient) Drug/Non Drug Allergy documented on EMR Reaction Allergy Type Onset Date Status Keflex vomiting Drug Allergy Active 12 Hour Nasal [place] Unknown Drug Allergy Active REASON FOR VISIT [...] Status W/U Status Risk Notes Problem Sciatica (74625668) Sciatica (M54.30) Active confirmed Vital Signs Blood pressure systolic 92 mm Hg 12/21/19 25 Blood pressure diastolic 60 mm Hg 025 Height 64.5 in 12/20/2024 Weight 205 lbs 12/20/2024 BMI 34.64 kg/m2 12/20/2024 weight is up 8 pounds since 09-08-24 Encounters Encounter Location Date Provider Diagnosis Darrian Kelsey MD [address] [place] [phone] 12/20/2024 Darrian Kelsey Sciatica M54.30 Assessments Encounter [...] Details Provider Name:Darrian ramos, 02/28/2025 07:00:00 AM, [address] [place] [address], [place] [address], [place], [place], [phone], Provider Name:Darrian ramos, 03/07/2025 08:30:00 AM, [address] [place] [address], [place] [address], [place], [place], [phone], Progress Notes * Marco CASTROOB:1965 (59 yo F)Acc No.[id number]:12/20/2024 Progress Notes Patient: Alivia OMER Provider: Chantelle Kelsey MD :1965 A ge:59 Y S ex:Female Date:12/20/2024 Address:[address] [place] [address] [id number] Subjective: * Chief Complaints: * S CIATICA [...] * Assessment: 1. S [facility] - M54.30 (Primary) Plan: * Treatment: 2. [...] MD Date: 0 12/20/2024 Generated for Ronel iverson/Silvino/Ganeshransmitting on: 0 02/21/2025 02:12 PM EDT History and Physical Notes * [...]
--- OUTSIDE RECORDS SUMMARY | 2024-12-22 05:58 | XMS_ITS ---
Author Organization Darrian Kelsey MD Address [address] [place] [phone] Care Team Providers Care Director Decision Support Name Role Phone Darrian Kelsey Primary Care Provider [phone] REASON FOR VISIT med isusue Medications Medication SIG (Take, Route, Frequency, Duration) Notes Start Date End Date Status Cyclobenzaprine HCl 5 MG 1 tablet at bed time as needed Orally twice a day for 10 days 12/20/2024 Active Encounters Encounter Location Date Provider Diagnosis Darrian Kelsey MD [address] [place] [address] Drive [address] [place] [phone] 12/22/2024 Darrian Kelsey Sciatica M54.30 Assessments Encounter [...] Details Provider Name:Darrian ramos, 02/28/2025 07:00:00 AM, [address] [place] [address], [address], [phone], Provider Name:Darrian ramos, 03/07/2025 08:30:00 AM, [address] [place] [address], [address], [phone], Progress Notes * Marco CASTROOB:1965 (59 yo F)Acc No.[id number]:12/22/2024 Patient: Alivia OMER :1965 A ge:59 Y S ex:Female Address:[address] [place] [address] [address] , [place], [address] * Refills Refill Cyclobenzaprine HCl Tablet, 5 MG, Orally, 20 Tablet, 1 tablet at bedtime as needed, twice a day, 10 days * true * Date: Generated for Ronel iverson/Silvino/Aspenitting on: 0 02/21/2025 02:11 PM EDT
--- OUTSIDE RECORDS SUMMARY | 2025-02-17 06:27 | XMS_ITS ---
Author Organization Darrian Kelsey MD Address [address] [place] [address] [place] [phone] Care Team Providers Care Process Safety Manager Name Role Phone Darrian Kelsey Primary Care Provider [phone] REASON FOR VISIT RX FOR EYES Medications Medication SIG (Take, Route, Frequency, Duration) Notes Start Date End Date Status Ocuflox 0.3 % 2 drops Ophthalmic 4 times a day for 7 days 02/17/2025 Active Encounters Encounter Location Date Provider Diagnosis Darrian Kelsey MD [address] [place] [address] [place] [id number] 02/17/2025 Darrian Kelsey Plan Of Treatment Medication Medication Name Sig Start Date Stop Date Notes Ocuflox 0.3 % 2 drops Ophthalmic 4 times a day for 7 days 02/17/2025 Next Appt Details Provider Name:Darrian ramos, 02/28/2025 07:00:00 AM, [address] [place] [address], [phone], Provider Name:Darrian ramos, 03/07/2025 08:30:00 AM, [address] [place] [address], [phone], Progress Notes * Marco CASTROOB:1965 (59 yo F)Acc No.[id number]:02/17/2025 Patient: Alivia OMER :1965 A ge:59 Y S ex:Female Address:[address] , [place] [facility] [place], [address] * Refills Start Ocuflox Solution, 0.3 %, Ophthalmic, 2.8 ML, 2 drops, 4 times a day, 7 days * true * Date: Generated for Ronel iverson/Silvino/Aspenitting on: 0 02/21/2025 02:12 PM EDT
--- OUTSIDE RECORDS SUMMARY | 2025-02-21 14:12 | XMS_ITS | Patient Health Record ---
Author Organization [facility] Address [address] [place] [address] Care Team Providers Care Coroner Name Role Phone David Colon MD Primary Care Provider Unavail able Scott Dejesus Unavailable [phone] Reason For Referral No Information Medications Medication [...] O [employer] [address] [place] [address] [id number] 0 WERO CASTRO Self - patient is the insured
--- OUTSIDE RECORDS SUMMARY | 2025-02-21 14:13 | XMS_ITS | Clinical Summary ---
Author Organization [facility] Address [address] [place] [address] Phone Care Team Providers Care Artificial Flowers Supervisor Name Role Phone Oma Rodrigues MD Primary Care Provider [phone] Allergies Active Allergy Reactions Criticality Noted Date [...] Safety Answer Date Record ed Physical Abuse Unrecognized value 05/06/2024 Verbal Abuse Unrecognized value 05/06/2024 Comments No Sex and Gender Information [...] Maintenance Results * COLONOSCOPY Anesthesia - MAC; [facility] (05/06/2024 1:58 PM EST) Anatomical Region Laterality Modality Other 05/06/2024 1:34 PM EST Impressions 05/06/2024 1:59 PM EST - The examined portion of the ileum was normal. - Diverticulosis in the sigmoid colon. - Internal hemorrhoids. - No specimens collected. Recommendation: - Repeat colonoscopy in 10 years for screening purposes. Narrative 05/06/2024 1:59 PM EST [facility] GI Patient Name: Alivia Marrufo Procedure [...] malignant neoplasm of colon CPT copyright 2020 [employer]. All rights reserved. The codes documented in this report are preliminary and upon mis director review may be revised to meet current compliance requirements. Oma Rodrigues MD 05/06/2024 1:59:00 PM This report has been signed electronically.Oma Rodrigues MD Number of Addenda: 0 Note Initiated On: 05/06/2024 1:34 PM Scope In: Scope Out: Endoscopy Department at [facility] - [address] [place] [phone] Procedure Note Oma Rodrigues MD - 05/06/2024 [facility] GI Patient Name: Alivia Marrufo Procedure [...] for malignantneoplasm of colon CPT copyright 2020 [employer]. All rights reserved. The codes documented in this report are preliminary and upon mis director reviewmay be revised to meet current compliance requirements. Oma Rodrigues MD 05/06/2024 1:59:00 PM This report has been signed electronically.Oma Rodrigues MD Number of Addenda: 0 Note Initiated On: 05/06/2024 1:34 PM Scope In: Scope Out: Endoscopy Department at [facility] - [address] [place] [phone] IMPRESSION: - The examined portion of the ileum was normal. - Diverticulosis in the sigmoid colon. - Internal hemorrhoids. - No specimens collected. Recommendation: - Repeat colonoscopy in 10 years for screening purposes. Oma Rodrigues MD GI~PROCEDURE ORDERABLES Final Result from Last 3 Months or Most Recently Relevant to Health Maintenance Insurance [facility] Care Teams Artificial Flowers Supervisor Relationship Specialty Start Date End Date Oma Rodrigues MD [address] [place] [address] PCP - General Gastroenterology 04/29/24
--- OUTSIDE RECORDS SUMMARY | 2025-02-21 14:13 | XMS_ITS | Patient Health Record ---
Author Organization Darrian Kelsey MD Address [address] [place], [place] [id number] Care Team Providers Care Subassemblies Wirer Name Role Phone Darrian Kelsey Primary Care Provider Allergies Allergen (clinical drug ingredient) Drug/Non Drug Allergy documented on EMR Reaction Allergy Type Onset Date Status Keflex vomiting Drug Allergy Active 12 Hour Nasal [place] Unknown Drug Allergy Active Results Component Value Reference Range Notes Complete Blood Count Auto Di ff Reviewed date:02/29/2024 12:01:16 PM Interpretation: Performing Lab:[facility], [address] [place] [phone] Notes/Report: White Blood Count 5.2 4.8-10.8 X10*3/uL [...] NRBC Abs Auto 0.000 0.0-0.012 X10*3/uL Comprehensive [place]. Panel Fa st Reviewed date:02/29/2024 12:00:59 PM Interpretation: Performing Lab:[address] [address] Notes/Report: Sodium 140 135-145 mmol/L Potassium 3.9 3.3-5.1 mmol/L Chloride 107 96-108 mmol/L Carbon Dioxide 25 22-29 mmol/L Anion Gap 12 12-20 Blood Urea Nitrogen 16 9-16 mg/dL Creatinine 0.78 0.5-1.4 mg/dL Estimated Glomerular Filt Rate > 60 NOTE: For -Macedonian individuals, multiply the result by 1.210. Chronic [...] Panel Reviewed date:02/29/2024 12:01:44 PM Interpretation: Performing Lab:[facility], [address] [place] [phone] Notes/Report: Triglycerides 77 <150 mg/dL Desirable Triglyceride: [...] t Reviewed date:02/29/2024 12:01:31 PM Interpretation: Performing Lab:[facility], [address] [place] [phone] Notes/Report: [id number] Urine, Clean Catch Color Urine Yellow Appearance Urine Clear PH 5.5 5.0-9.0 Glucose Urine UA Negative Negative mg/dL Urine Blood Negative Negative Specific [place] - Urine >= 1.030 1.005-1.025 Urine Protein [...] date:11/17/2024 12:52:15 PM Interpretation: Performing Lab: Notes/Report: [address] [address] XRay Report Signed Patient: Alivia Marrufo MR#: [id number] [birth year] : 1965 Acct:[id number] Age/Sex: 59 / F ADM Date: 11/17/24 Loc: ROBIN Attending Dr: Nigel Hamilton MD Ordering Physician: Nigel Hamilton MD Date of Service: 11/17/24 Procedure(s): XR chest 2V Accession Number(s): [id number] cc: Darrian Kelsey MD; Nigel Hamilton MD [...] in OV> 11/17/2447 DD/ 9 TD/TT: 11/17/24935 Machine Stuffer Automatic: [place] [address] XRay Report Signed Patient: Christiano Marrufo MR#: [id number] [birth year] : 1965 Acct:[id number] Age/Sex: 59 / F ADM Date: 11/17/24 Loc: ROBIN Attending Dr: Nigel Hamilton MD Ordering Physician: Nigel Hamilton MD Date of Service: 11/17/24 Procedure(s): XR [address] st 2V Accession Number(s): [id number] cc: Darrian Kelsey MD; Nigel Hamilton MD [...] in OV> 11/17/24946 DD/ 9 TD/TT: 11/17/24935 Machine Stuffer Automatic: Reason For Referral Reason please felicitas and adore bermudez ins referral needed Diagnosis 1 History of asthma (Z 87.09) Referral Organization Darrian Kelsey MD Referring Provider First Name Darrian Referring Provider Last Name Low Referring Provider Speciality Internal M edicine Referred Provider NIGEL HAMILTON Referred Provider Specialty Pulmonary Di seases General Notes Tashia Jones 0 09/15/2024 09:11:59 AM >info faxed, Tashia Jones 09/26/2024 03:24:43 PM >patient is aware of appt Referral Priority Routine Referral Appointment Date 01/30/2025 Medications Medication SIG (Take, Route, Frequency, Duration) Notes Start Date End Date Status Levalbuterol Tartrate 45 MCG/ACT 1 puff as needed Inhalation every 6 hrs 06/30/2023 Active Ocuflox 0.3 % 2 drops Ophthalmic 4 times a day for 7 days 02/17/2025 Active Albuterol Sulfate HFA 108 (9 0 [...] Status W/U Status Risk Notes Problem Sciatica (91021310) Sciatica (M54.30) Active confirmed Problem Sinusitis (58087736) Sinusitis (J32.9) Active confirmed Problem 23663151 Dysthymia (F34.1) Active confirmed Problem 265033922 History of asthm a (Z87.09) Active confirmed Problem 477127685 Acute asthma (J45.909) Active confirmed Problem 38049628 Stress incontinence in female (N39.3) Active confirmed [...] Location Date Provider Diagnosis Darrian Kelsey MD [address] [place] [id number] 03/03/2024 Darrian Kelsey History of asthma Z87.09 ; Annual physical exam Z00.00 ; Stress incontinence in female N39.3 ; Pre-diabetes R73.03 ; Dysthymia F34.1 and Depression screening Z13.31 Darrian Kelsey MD [address] [place] [id number] 02/29/2024 Darrian Kelsey Blood tests for routine general physical examination Z00.00 Darrian Kelsey MD [address] [place] [address] Drive [address] [place] [id number] 09/08/2024 Darrian Kelsey Acute asthma J45.909 and Sinusitis J32.9 Darrian Kelsey MD [address] [place] [id number] 12/20/2024 Darrian Kelsey Sciatica M54.30 Darrian Kelsey MD [address] [place] [id number] 06/14/2024 Darrian Kelsey MD [address] [place] [id number] 10/06/2024 Darrian Kelsey Acute asthma J45.909 Darrian Kelsey MD [address] [place] [id number] 11/24/2024 Darrian Kelsey MD [address] [place] [id number] 12/22/2024 Darrian Kelsey Sciatica M54.30 Darrian Kelsey MD [address] [place] [id number] 02/17/2025 Darrian Kelsey Assessments Encounter Date Diagnosis (ICD Code) Assessment [...] neck 11/19/2023 Next Appt Details Provider Name:Darrian Amado Elo ier, 02/28/2025 07:00:00 AM, [address] [place] [address], [address], [place], [place], [phone], Provider Name:Darrian Amado Elo solaresr, 03/07/2025 08:30:00 AM, [address] [place] [address], [address], [place], [place], [phone], Insurance Providers Payer Name Payer Address Payer Phone Subscriber Number Group Number Insured Name Patient Relationship to Insured Coverage Start Date Coverage End Date [employer] [address] [place], [place] [phone] [id number] Alivia Marrufo Self - patient is the insured
== END ==
LOC: HO.SL 13:01
PROVIDERS: PCP Internal Medicine; Visit Provider Hospitalist
DX: G47.33 Obstructive sleep apnea (adult) (pediatric) (principal); R06.83 Snoring; R40.0 Somnolence; T78.40XA Allergy, unspecified, initial encounter; J45.909 Unspecified asthma, uncomplicated
CPT/HCPCS: 95806

== ENCOUNTER → 2025-02-21 13:15 | Outpatient (BNV) | payer BC, SELFPAY | PROVIDERS: PCP Internal Medicine; Visit Provider Internal Medicine | DX: R06.83 Snoring (principal) | CPT/HCPCS: 95806 ==

== ENCOUNTER 2025-02-28 09:51 | Outpatient (REF) | payer BC, SELFPAY ==
--- OUTSIDE RECORDS SUMMARY | 2024-11-24 05:06 | XMS_ITS ---
Author Organization Darrian Kelsey MD Address [address] [place] [phone] Care Team Providers Care Traffic Expert Name Role Phone Darrian Kelsey Primary Care Provider [phone] REASON FOR VISIT referral Encounters Encounter Location Date Provider Diagnosis Darrian Kelsey MD [address] [place] [address] [place] [phone] 11/24/2024 Darrian Kelsey Plan Of Treatment Next Appt Details Provider Name:Darrian Gasca ier, 03/07/2025 08:30:00 AM, [address], Suite [facility], [place], [place], [phone], Progress Notes * Marco CASTROOB:1965 (59 yo F)Acc No.[id number]:11/24/2024 Patient: Roselia Alivia RUSSELL :1965 A ge:59 Y S ex:Female Address:[address] [place], [address] * true * Date: Generated for Printi ng/Faxing/eTransmitting on: 11:21 AM EDT
--- OUTSIDE RECORDS SUMMARY | 2024-12-20 07:45 | XMS_ITS ---
Author Organization Darrian Kelsey MD Address [address] [place] [phone] Care Team Providers Care Surface Supervisor Name Role Phone Darrian Kelsey Primary Care Provider [phone] Allergies Allergen (clinical drug ingredient) Drug/Non Drug Allergy documented on EMR Reaction Allergy Type Onset Date Status Keflex vomiting Drug Allergy Active 12 Hour Nasal [place] Unknown Drug Allergy Active REASON FOR VISIT [...] Status W/U Status Risk Notes Problem Sciatica (65263101) Sciatica (M54.30) Active confirmed Vital Signs Blood pressure systolic 92 mm Hg 12/21/19 25 Blood pressure diastolic 60 mm Hg 025 Height 64.5 in 12/20/2024 Weight 205 lbs 12/20/2024 BMI 34.64 kg/m2 12/20/2024 weight is up 8 pounds since 09-08-24 Encounters Encounter Location Date Provider Diagnosis Darrian Kelsey MD [address] [place] [address] [place] [phone] 12/20/2024 Darrian Kelsey Sciatica M54.30 Assessments Encounter [...] for use Next Appt Details Provider Name:Darrian Gasca ier, 03/07/2025 08:30:00 AM, [address] [place] [address], Suite [facility], [place], [place], [phone], Progress Notes * Marco CASTROOB:1965 (59 yo F)Acc No.[id number]:12/20/2024 Progress Notes Patient: Alivia OMER Provider: Chantelle Kelsey MD :1965 A ge:59 Y S ex:Female Date:12/20/2024 Address:[address] [place] [address] , [facility] [id number] Subjective: * Chief Complaints: * S CIATICA [...] strength normal. Assessment: * Assessment: 1. S shona - M54.30 (Primary) Plan: * Treatment: 2. [...] MD Date: 0 12/20/2024 Generated for Ronel iverson/Silvino/Aspenitting on: 1 11:21 AM EDT History and Physical Notes * [...]
--- OUTSIDE RECORDS SUMMARY | 2024-12-22 05:58 | XMS_ITS ---
Author Organization Darrian Kelsey MD Address [address] [place] [phone] Care Team Providers Care Business Writer Name Role Phone Darrian Kelsey Primary Care Provider REASON FOR VISIT med isusue Medications Medication SIG (Take, Route, Frequency, Duration) Notes Start Date End Date Status Cyclobenzaprine HCl 5 MG 1 tablet at bed time as needed Orally twice a day for 10 days 12/20/2024 Active Encounters Encounter Location Date Provider Diagnosis Darrian Kelsey MD [address] [place] [address] Drive [address] [place] [phone] 12/22/2024 Darrian Kelsey Sciatica M54.30 Assessments Encounter Date Diagnosis (ICD Code) Assessment Notes Treatment Notes Treatment Clinical Notes Section Notes 12/22/2024 Sciatica (ICD-10 - M54.30) Plan Of Treatment Medication Medication Name Sig Start Date Stop Date Notes Cyclobenzaprine HCl 5 MG 1 tablet at bed time as needed Orally twice a day for 10 days 12/20/2024 Next Appt Details Provider Name:Darrian Gasca ier, 03/07/2025 08:30:00 AM, [address] [facility], Suite [facility], [place], [place], [phone], Progress Notes * Marco CASTROOB:1965 (59 yo F)Acc No.[id number]:12/22/2024 Patient: Roselia Alivia RUSSELL :1965 A ge:59 Y S ex:Female Address:[address] , [place], [address] * Refills Refill Cyclobenzaprine HCl Tablet, 5 MG, Orally, 20 Tablet, 1 tablet at bedtime as needed, twice a day, 10 days * true * Date: Generated for Ronel iverson/Silvino/Jared on: 11:20 AM EDT
--- OUTSIDE RECORDS SUMMARY | 2025-02-17 06:27 | XMS_ITS ---
Author Organization Darrian Kelsey MD Address [address] [place] [phone] Care Team Providers Care Regional Production Manager Name Role Phone Darrian Kelsey Primary Care Provider REASON FOR VISIT RX FOR EYES Medications Medication SIG (Take, Route, Frequency, Duration) Notes Start Date End Date Status Ocuflox 0.3 % 2 drops Ophthalmic 4 times a day for 7 days 02/17/2025 Active Encounters Encounter Location Date Provider Diagnosis Darrian Kelsey MD [address] [place] [address] [address] [place] [phone] 02/17/2025 Darrian Kelsey Plan Of Treatment Medication Medication Name Sig Start Date Stop Date Notes Ocuflox 0.3 % 2 drops Ophthalmic 4 times a day for 7 days 02/17/2025 Next Appt Details Provider Name:Darrian Gasca ier, 03/07/2025 08:30:00 AM, [address] [place] [address], [address], [phone], Progress Notes * Marco CASTROOB:1965 (59 yo F)Acc No.[id number]:02/17/2025 Patient: Roselia Alivia RUSSELL :1965 A ge:59 Y S ex:Female Address:[address] [place], [address] * Refills Start Ocuflox Solution, 0.3 %, Ophthalmic, 2.8 ML, 2 drops, 4 times a day, 7 days * true * Date: Generated for Ronel iverson/Silvino/Jared on: 11:21 AM EDT
--- OUTSIDE RECORDS SUMMARY | 2025-02-28 03:00 | XMS_ITS ---
Author Organization Darrian Kelsey MD Address [address] [place], [place] [id number] Care Team Providers Care Animal Physiology Teacher Name Role Phone Darrian Kelsey Primary Care Provider Results Component Value Reference Range Notes Complete Blood Count Auto Di ff (Not yet reviewed by provider) Interpretation: Performing Lab:[facility], [address] [place] [phone] Notes/Report: White Blood Count 4.9 4.8-10.8 X10*3/uL [...] NRBC Abs Auto 0.000 0.0-0.012 X10*3/uL Comprehensive [place]. Panel Fa st (Not yet reviewed by provider) Interpretation: Performing Lab:[facility], [address] [place] [phone] Notes/Report: Sodium 141 135-145 mmol/L Potassium 4.1 [...] Alkaline Phosphatase 52 39-117 U/L Lipid Panel (Not yet reviewe d by provider) Interpretation: Performing Lab:[facility], [address] [place] [phone] Notes/Report: Triglycerides 91 <150 mg/dL Desirable Triglyceride: [...] liver disease. UA ClnCatch+Micro w/rflx Cul t (Not yet reviewed by provider) Interpretation: Performing Lab:[facility], [address] [place] [phone] Notes/Report: Urine, Clean Catch Color Urine Yellow Appearance Urine Clear PH 5.5 5.0-9.0 Glucose Urine UA Negative Negative mg/dL Urine Blood Negative Negative Specific [place] - Urine 1.020 1.005-1.025 Urine Protein Negative [...] Location Date Provider Diagnosis Darrian Kelsey MD [address] [place] [address] [place] [id number] 02/28/2025 Darrian Kelsey Blood tests for routine general physical examination Z00.00 Assessments Encounter Date Diagnosis (ICD Code) Assessment Notes Treatment Notes Treatment Clinical Notes Section Notes 02/28/2025 Blood tests for routine general physical examination (ICD-10 - Z00.00) Plan Of Treatment Pending Test Test Name Order Date Complete Blood Count Auto Diff 5 Comprehensive [place]. Panel Fast 5 Lipid Panel 02/28/2025 UA ClnCatch+Micro w/rflx Cult 02/28/2025 Next Appt Details Provider Name:Darrian ramos, 03/07/2025 08:30:00 AM, [address] [place] [address], Suite [facility], [place], [place], [phone], Progress Notes * Marco CASTROOB:1965 (59 yo F)Acc No.[id number]:02/28/2025 Progress Note Patient: Alivia OMER Provider: Chantelle Kelsey MD :1965 A ge:59 Y S ex:Female Date:02/28/2025 Address:[address] [place], [place] [phone] Subjective: * Chief Complaints: * 1 . [...] Pending * Provider: Chantelle Kelsey MD Date: 1 Generated for Ronel iverson/Silvino/Aspenitting on: 11:21 AM EDT
[2025-02-28 09:53] LABS: MANUAL DIFF FLAG NO
[2025-02-28 10:17] LABS: Hematocrit 40.1 % (37.0-47.0); Hemoglobin 13.4 g/dl (12.0-16.0); Imm Gran Abs Auto 0.01 X10*3/uL (0.00-0.03); Imm Gran Pct Auto 0.2 % (0.0-0.4); Lymphocytes Absolute Auto 1.4 X10*3/uL (1.2-4.9); Mean Corpuscular HGB Conc 33.4 g/dl (31.0-35.0); Mean Corpuscular Hemoglobin 30.0 pg (27.0-33.0); Mean Corpuscular Volume 89.9 fL (80.0-98.0); NRBC Abs Auto 0.000 X10*3/uL (0.0-0.012); NRBC Pct Auto 0.0 /100WBC (0.0-0.2); Platelet Count 167 X10*3/uL (160-400); Red Blood Count 4.46 X10*6/uL (4.20-5.50); White Blood Count 4.9 X10*3/uL (4.8-10.8)
[2025-02-28 10:20] LABS: Appearance Urine Clear; Glucose Urine UA Negative (Negative); PH 5.5 (5.0-9.0); Specific Gravity - Urine 1.020 (1.005-1.025); UMIC TRIGGER UACC YES
[2025-02-28 10:33] LABS: UACC Culture Trigger YES
[2025-02-28 10:34] LABS: Alanine Aminotransferase 19 U/L (0-31); Albumin Level 4.1 g/dL (3.5-5.0); Alkaline Phosphatase 52 U/L (39-117); Anion Gap 10 (12-20); Aspartate Amino Transferase 20 U/L (5-31); Blood Urea Nitrogen 14 mg/dL (9-16); Calcium 8.9 mg/dL (8.4-10.2); Carbon Dioxide 29 mmol/L (22-29); Chloride 106 mmol/L (96-108); Cholesterol 196 mg/dL (<200); Estimated Glomerular Filt Rate > 60; HDL Cholesterol 47 mg/dL (>40); Potassium 4.1 mmol/L (3.3-5.1); Sodium 141 mmol/L (135-145); Total Protein 6.5 g/dL (6.5-8.0); Triglycerides 91 mg/dL (<150)
--- OUTSIDE RECORDS SUMMARY | 2025-02-28 11:21 | XMS_ITS | Clinical Summary ---
Author Organization [facility] Address [address] [place] [address] Phone Care Team Providers Care Mission Systems Engineer Name Role Phone Oma Rodrigues MD Primary Care Provider [phone] Allergies Active Allergy Reactions Criticality Noted Date [...] Maintenance Results * COLONOSCOPY Anesthesia - MAC; [facility] ENDOSCOPY (05/06/2024 1:58 PM EST) Anatomical Region Laterality Modality Other 05/06/2024 1:34 PM EST Impressions 05/06/2024 1:59 PM EST - The examined portion of the ileum was normal. - Diverticulosis in the sigmoid colon. - Internal hemorrhoids. - No specimens collected. Recommendation: - Repeat colonoscopy in 10 years for screening purposes. Narrative 05/06/2024 1:59 PM EST [facility] GI Patient Name: Alivia Marrufo [...] malignant neoplasm of colon CPT copyright 2020 [employer]. All rights reserved. The codes documented in this report are preliminary and upon shot core drill operator review may be revised to meet current compliance requirements. Oma Rodrigues MD 05/06/2024 1:59:00 PM This report has been signed electronically.Oma Rodrigues MD Number of Addenda: 0 Note Initiated On: 05/06/2024 1:34 PM Scope In: Scope Out: Endoscopy Department at [facility] - [address] [place] [phone] Procedure Note Oma Rodrigues MD - 05/06/2024 [facility] GI Patient Name: Alivia Marrufo [...] for malignantneoplasm of colon CPT copyright 2020 [employer]. All rights reserved. The codes documented in this report are preliminary and upon shot core drill operator reviewmay be revised to meet current compliance requirements. Oma Rodrigues MD 05/06/2024 1:59:00 PM This report has been signed electronically.Oma Rodrigues MD Number of Addenda: 0 Note Initiated On: 05/06/2024 1:34 PM Scope In: Scope Out: Endoscopy Department at [facility] - [address] [place] [phone] IMPRESSION: - The examined portion of the ileum was normal. - Diverticulosis in the sigmoid colon. - Internal hemorrhoids. - No specimens collected. Recommendation: - Repeat colonoscopy in 10 years for screening purposes. Oma Rodrigues MD GI~PROCEDURE ORDERABLES Final Result from Last 3 Months or Most Recently Relevant to Health Maintenance Insurance [facility] Care Teams Mission Systems Engineer Relationship Specialty Start Date End Date Oma Rodrigues MD [address] [place] [id number] PCP - General Gastroenterology 04/29/24
--- OUTSIDE RECORDS SUMMARY | 2025-02-28 11:21 | XMS_ITS | Patient Health Record ---
Author Organization [facility] Address [address] [place] [address] Care Team Providers Care Charting Clerk Name Role Phone David Colon MD Primary Care Provider Unavail able Scott Dejesus Unavailable [phone] Reason For Referral No Information Medications Medication [...] O [employer]UE [employer] CLAIMS [address] [place] [address] [id number] WERO CASTRO Self - patient is the insured
--- OUTSIDE RECORDS SUMMARY | 2025-02-28 11:21 | XMS_ITS | Patient Health Record ---
Author Organization Darrian Kelsey MD Address [address] [place], [place] [id number] Care Team Providers Care Nuclear Station Operator Name Role Phone Darrian Kelsey Primary Care Provider [phone] Allergies Allergen (clinical drug ingredient) Drug/Non Drug Allergy documented on EMR Reaction Allergy Type Onset Date Status Keflex vomiting Drug Allergy Active 12 Hour Nasal [place] Unknown Drug Allergy Active Results Component Value Reference Range Notes Complete Blood Count Auto Di ff Reviewed date:02/29/2024 12:01:16 PM Interpretation: Performing Lab:[facility], [address] [place] [phone] Notes/Report: White Blood Count 5.2 4.8-10.8 X10*3/uL [...] NRBC Abs Auto 0.000 0.0-0.012 X10*3/uL Comprehensive [place]. Panel Fa st Reviewed date:02/29/2024 12:00:59 PM Interpretation: Performing Lab:[address] [phone] Notes/Report: Sodium 140 135-145 mmol/L Potassium 3.9 3.3-5.1 mmol/L Chloride 107 96-108 mmol/L Carbon Dioxide 25 22-29 mmol/L Anion Gap 12 12-20 Blood Urea Nitrogen 16 9-16 mg/dL Creatinine 0.78 0.5-1.4 mg/dL Estimated Glomerular Filt Rate > 60 NOTE: For -[place] individuals, multiply the result by 1.210. Chronic [...] Panel Reviewed date:02/29/2024 12:01:44 PM Interpretation: Performing Lab:[facility], [address] [place] [phone] Notes/Report: Triglycerides 77 <150 mg/dL Desirable Triglyceride: [...] t Reviewed date:02/29/2024 12:01:31 PM Interpretation: Performing Lab:[facility], [address] [place] [phone] Notes/Report: [id number] Urine, Clean Catch Color Urine Yellow Appearance Urine Clear PH 5.5 5.0-9.0 Glucose Urine UA Negative Negative mg/dL Urine Blood Negative Negative Specific [place] - Urine >= 1.030 1.005-1.025 Urine Protein [...] date:11/17/2024 12:52:15 PM Interpretation: Performing Lab: Notes/Report: [address] [address] XRay Report Signed Patient: Alivia Marrufo MR#: [id number] 75 : 1965 Acct:[id number] Age/Sex: 59 / F ADM Date: 11/17/24 Loc: [facility] Attending Dr: Nigel Hamilton MD Ordering Physician: Nigel Hamilton MD Date of Service: 11/17/24 Procedure(s): XR chest 2V Accession Number(s): [id number] cc: Darrian Kelsey MD; Nigel Hamilton MD [...] in OV> 11/17/2447 DD/ 9 TD/TT: 11/17/24935 Metal Spraying Machine Operator: [place] [id number] XRay Report Signed Patient: Christiano Marrufo MR#: [id number] [birth year] : 1965 Acct:[id number] Age/Sex: 59 / F ADM Date: 11/17/24 Loc: ROBIN Attending Dr: Nigel Hamilton MD Ordering Physician: Nigel Hamilton MD Date of Service: 11/17/24 Procedure(s): XR [address] st 2V Accession Number(s): [id number] cc: Darrian Kelsey MD; Nigel Hamilton MD [...] in OV> 11/17/24946 DD/ 9 TD/TT: 11/17/24935 Metal Spraying Machine Operator: Neymar Ybarra (Not yet reviewed by provider) Interpretation: Performing Lab:[facility], [address] [place] [phone] Notes/Report: Neymar Ybarra See Note Specimen held untested for 24 hours; Call to request Chemistry testing. Complete Blood Count Auto Di ff (Not yet reviewed by provider) Interpretation: Performing Lab:[facility], [address] [place] [phone] Notes/Report: White Blood Count 4.9 4.8-10.8 X10*3/uL [...] NRBC Abs Auto 0.000 0.0-0.012 X10*3/uL Comprehensive [place]. Panel Fa st (Not yet reviewed by provider) Interpretation: Performing Lab:[facility], [address] [place] [phone] Notes/Report: Sodium 141 135-145 mmol/L Potassium 4.1 [...] yet reviewe d by provider) Interpretation: Performing Lab:[facility], [address] [place] [phone] Notes/Report: Triglycerides 91 <150 mg/dL Desirable Triglyceride: [...] (Not yet reviewed by provider) Interpretation: Performing Lab:[facility], [address] [place] [phone] Notes/Report: Urine, Clean Catch Color Urine Yellow Appearance Urine Clear PH 5.5 5.0-9.0 Glucose Urine UA Negative Negative mg/dL Urine Blood Negative Negative Specific [place] - Urine 1.020 1.005-1.025 Urine Protein Negative Neg-Trace mg/dL Urine Ketones Negative Negative mg/dL Nitrite Urine Negative Negative Leukocyte Esterase Urine Small (1+) Negative RBC Urine 0-2 0-2 /HPF WBC Urine 0-5 0-5 /HPF Squamous Epithelial Cell Urine 3-5 0-2 /HPF Bacteria Urine None Seen None Seen Hyaline Casts Urine 0-2 0-2 /LPF Reason For Referral Reason please eval and adore t ins referral needed Diagnosis 1 History of [...] Status W/U Status Risk Notes Problem Sciatica (73909805) Sciatica (M54.30) Active confirmed Problem Sinusitis (74164216) Sinusitis (J32.9) Active confirmed Problem 68754267 Dysthymia (F34.1) Active confirmed Problem 343362078 History of asthm a (Z87.09) Active confirmed Problem 205736168 Acute asthma (J45.909) Active confirmed Problem 70844441 Stress incontinence in female (N39.3) Active confirmed [...] Location Date Provider Diagnosis Darrian Kelsey MD [address] [place] [address] [address] [place], [place] [id number] 03/03/2024 Darrian Kelsey History of asthma Z87.09 ; Annual physical exam Z00.00 ; Stress incontinence in female N39.3 ; Pre-diabetes R73.03 ; Dysthymia F34.1 and Depression screening Z13.31 Darrian Kelsey MD [address] [place] [id number] 02/29/2024 Darrian Kelsey Blood tests for routine general physical examination Z00.00 Darrian Kelsey MD [address] [place] [id number] 02/28/2025 Darrian Kelsey Blood tests for routine general physical examination Z00.00 Darrian Kelsey MD [address] [place] [id number] 09/08/2024 Darrian Kelsey Acute asthma J45.909 and Sinusitis J32.9 Darrian Kelsey MD [address] [place] [id number] 12/20/2024 Darrian Kelsey Sciatica M54.30 Darrian Kelsey MD [address] [place] [id number] 06/14/2024 Darrian [address] [place] [id number] 10/06/2024 Darrian Kelsey Acute asthma J45.909 Darrian Kelsey MD [address] [place] [id number] 11/24/2024 Darrian Kelsey MD [address] [place] [id number] 12/22/2024 Darrian Kelsey Sciatica M54.30 [address] [place] [id number] 02/17/2025 Darrian Kelsey Assessments Encounter Date Diagnosis [...] routine general physical examination (ICD-10 - Z00.00) 02/28/2025 Blood tests for routine general physical [...] Complete Blood Count Auto Diff 5 Comprehensive [place]. Panel Fast 5 Lipid Panel 02/28/2025 Hold Gold 02/28/2025 soft tiss head and/or neck 11/19/2023 UA ClnCatch+Micro w/rflx Cult 02/28/2025 Next Appt Details Provider Name:Dariran ramos, 03/07/2025 08:30:00 AM, [address] [facility] [address], [address], [place], [place], [id number], Insurance Providers Payer Name Payer Address Payer Phone Subscriber Number Group Number Insured Name Patient Relationship to Insured Coverage Start Date Coverage End Date [employer] [address] [place], [place] [id number] Alivia Marrufo Self - patient is the insured
== END 2025-02-28 09:52 | disposition home or self-care (01) ==
LOC: HO.LNP 09:51
PROVIDERS: Visit Provider Internal Medicine
DX: Z00.00 Encounter for general adult medical examination without abnormal findings (principal); Z13.6 Encounter for screening for cardiovascular disorders
CPT/HCPCS: 80053; 80061; 81001; 85025; 87086; 87147

== ENCOUNTER 2025-03-22 15:42 | Outpatient (AMB) | payer BC, SELFPAY ==
--- OUTSIDE RECORDS SUMMARY | 2024-03-03 04:00 | XMS_ITS ---
Author Organization Darrian Kelsey MD Address [address] [place], [place] [id number] Care Team Providers Care Dough Panner Name Role Phone Darrian Kelsey Primary Care Provider Allergies Allergen (clinical drug ingredient) Drug/Non Drug Allergy documented on EMR Reaction Allergy Type Onset Date Status Keflex vomiting Drug Allergy Active 12 Hour Nasal Stanley Unknown Drug Allergy Active REASON FOR VISIT ANNUAL EXAM Medications Medication SIG (Take, Route, Frequency, Duration) Notes Start Date End Date Status Albuterol Sulfate HFA 108 (90 Base) MCG/ACT 1 puff as needed Inhalation every 4 hrs 06/30/2023 Active Levalbuterol Tartrate 45 MCG/ACT 1 puff as needed Inhalation every 6 hrs 06/30/2023 Active Citalopram Hydrobromide 10 MG 1 tablet Orally Once a day Active Montelukast Sodium 10 MG 1 tablet Orally Once a day Active Immunizations Vaccine Route Administration Date Status Comme nts Fluarix Quadrivalent - 150 Unknown 03/03/2024 Refused Social History Tobacco Use: Social History Observation Description Date Details (start date - stop date) Never Smoker NA - NA Tobacco Use/Smoking Question Answer Notes Patient is a nonsmoker Additional Findings: Tobacco Non-User Cu rrent non-smoker, currently using no form of tobacco Alcohol Screen Question Answer Notes Did you have a drink containing alcohol in the p ast year? No Points 0 Interpretation Negative Vital Signs Blood pressure systolic 112 mm Hg 03/03/20 24 Blood pressure diastolic 64 mm Hg 024 Height 64.5 in 03/03/2024 Weight 200 lbs 03/03/2024 BMI 33.80 kg/m2 03/03/2024 weight is up 2 pounds since 11-19-23 Encounters Encounter Location Date Provider Diagnosis Darrian Kelsey MD [address] [place], [place] [id number] 03/03/2024 Darrian Kelsey History of asthma Z87.09 ; Annual physical exam Z00.00 ; Stress incontinence in female N39.3 ; Pre-diabetes R73.03 ; Dysthymia F34.1 and Depression screening Z13.31 Assessments Encounter Date Diagnosis (ICD Code) Assessment Notes Treatment Notes Treatment Clinical Notes Section Notes 03/03/2024 History of asthma (ICD-10 - Z87.09) hardly ever uses inhaler/ told her to use it before exercise, will continue current regiment 03/03/2024 Annual physical exam (ICD-10 - Z00.00) labs reviewed and discussed with patient 03/03/2024 Stress incontinence in female (ICD-10 - N39.3) is contemplating surgery 03/03/2024 Pre-diabetes (ICD-10 - R73.03) needs to lose weight 03/03/2024 Dysthymia (ICD-10 - F34.1) doing better on meds, will continue current regiment 03/03/2024 Depression screening (ICD-10 - Z13.31) negative screen Plan Of Treatment Medication Medication Name Sig Start Date Stop Date Notes Albuterol Sulfate HFA 108 (9 0 Base) MCG/ACT 1 puff as needed Inhalation every 4 hrs 06/30/2023 Levalbuterol Tartrate 45 MCG/ACT 1 puff as needed Inhalation every 6 hrs 06/30/2023 Citalopram Hydrobromide 10 MG 1 tablet Orally Once a day Montelukast Sodium 10 MG 1 tablet Orally Once a day Treatment Notes Assessment Notes History of asthma hardly ever uses inh aler/ told her to use it before exercise, will continue current regiment Annual physical exam labs reviewed and d iscussed with patient Stress incontinence in female is contemp lating surgery Pre-diabetes needs to lose weight Dysthymia doing better on meds , will continue current regiment Depression screening negative screen Next Appt Details Follow Up: 6 Months, Reason: pre dm Provider Name:Darrian ramos, 05/30/2025 08:30:00 AM, [address], [address], [place], [id number], Provider Name:Darrian Gasca ier, 03/01/2026 07:00:00 AM, [address], [address], [place], [phone], Provider Name:Darrian Gasca ier, 03/08/2026 08:00:00 AM, [address], [address], [place], [place], [phone], Progress Notes * Marco CASTROOB:1965 (58 yo F)Acc No.[id number]:03/03/2024 Progress Notes Patient: Alivia Delaney Provider: Chantelle Kelsey MD :1965 A ge:58 Y S ex:Female Date:03/03/2024 Address:[address] [place] [address] , [place], [id number] Subjective: * Chief Complaints: * A NNUAL EXAM * HPI: D epression Screening: PHQ-9 L ittle interest or pleasure in doing things N ot at all, F eeling down, depressed, or hopeless N ot at all, T rouble falling or staying asleep, or sleeping too much N ot at all, F eeling tired or having little energy N ot at all, P oor appetite or overeating N ot at all, F eeling bad about yourself or that you are a failure, or have let yourself or your family down N ot at all, T rouble concentrating on things, such as reading the newspaper or watching television N ot at all, M oving or speaking so slowly that other people could have noticed; or the opposite, being so fidgety or restless that you have been moving around a lot more than usual N ot at all, T houghts that you would be better off or of hurting yourself in some way N ot at all, T otal Score 0 . I nterpretation and Intervention D epression Screening Findings N egative, F ollow-Up for Depression : review of PHQ-9 found negative result, no follow-up needed. C ommunication Needs: Communication Needs D oes the patient have a hearing impairment N o, D oes the patient have a vision impairment? Y es, I f yes, what is the vision impairment? G lasses, D oes the patient have a cognition impairment? N o. S PAM Questions: SDOH Questions I n the past year have you been worried about losing housing? N o, I n the past year have you or any family members you live with been unable to get any of the following when it was really needed? Check all that apply: N one. S ymptom(s): patient is a 58 yo female here for annual visit with review of recent labs and follow up of chronic issues, here for yearly exam. * ROS: G eneral/Constitutional: Patient denies f atigue , headache. C hange in appetite?denies. C hills d enies. F ever d enies. O phthalmologic: Blurred vision d enies. D ischarge d enies. P ain d enies. E NT: Patient denies d ecreased sense of smell , any loss of taste , sore throat. D ecreased hearing d enies. S ore throat d enies. S wollen glands d enies. E ndocrine: Cold intolerance d enies. E xcessive thirst d enies. H eat intolerance d enies. W eight loss d enies. R espiratory: Patient denies s hortness of breath at rest shortness of breath with exertion. C ough d enies. S hortness of breath at rest d enies. S hortness of breath with exertion d enies. W heezing d enies. C ardiovascular: Patient denies c hest pain with exertion chest pain at rest. C hest pain at rest d enies. C hest pain with exertion d enies. I rregular heartbeat d enies. S hortness of breath d enies. G astrointestinal: Abdominal pain d enies. C hange in bowel habits d enies. D iarrhea d enies. N ausea d enies. R ectal bleeding d enies. V omiting d enies . G enitourinary: Patient complaining of u rianry incontinence. B lood in urine d enies. D ifficulty urinating d enies. F requent urination d enies. U rinary incontinence D enies. M usculoskeletal: Patient denies m uscle aches. P ainful joints d enies. W eakness d enies. P eripheral Vascular: Patient denies r ed and blue toes. S kin: Dry skin d enies. I tching d enies. D enies?Mole(s), changes in moles, new moles or any lesions of concern. D enies P hotosensitivity. R karen d enies. N eurologic: Dizziness d enies. F ainting d enies. H eadache?denies. * Medical History: * Surgical History: * Hospitalization/Major Diagno stic Procedure: * Family History: F ather: 49 yrs. M other: alive 80 yrs, diagnosed with Alzheimer disease. 1 brother(s) , 1 sister(s) . 2 son(s) , 1 daughter(s) . . Father suicide. * Social History: T obacco Use: T obacco Use/Smoking P atient is a n onsmoker, A dditional Findings: Tobacco Non-User C urrent non-smoker, currently using no form of tobacco. D rugs/Alcohol: A lcohol Screen D id you have a drink containing alcohol in the past year? N o, P oints 0 , I nterpretation N egative. M iscellaneous: n o Caffeine. Children: yes. no Exercise. no Home smoke detector use. Marital status: . no Travel outside of the [place]. * Medications: T akingLevalbuterol Tartrate 45 MCG/ACT Aerosol 1 puff as needed Inhalation every 6 hrsAlbuterol Sulfate HFA 108 (90 Base) MCG/ACT Aerosol Solution 1 puff as needed Inhalation every 4 hrsMontelukast Sodium 10 MG Tablet 1 tablet Orally Once a dayCitalopram Hydrobromide 10 MG Tablet 1 tablet Orally Once a dayMedication List reviewed and reconciled with the patientTaking Levalbuterol Tartrate 45 MCG/ACT Aerosol 1 puff as needed Inhalation every 6 hrsTaking Albuterol Sulfate HFA 108 (90 Base) MCG/ACT Aerosol Solution 1 puff as needed Inhalation every 4 hrsTaking Montelukast Sodium 10 MG Tablet 1 tablet Orally Once a dayTaking Citalopram Hydrobromide 10 MG Tablet 1 tablet Orally Once a dayMedication List reviewed and reconciled with the patient * Allergies: 1 2 Hour Nasal SprayKeflex: vomitingyes[Allergies Verified] Objective: * Vitals: H t: 64.5, Wt:200, BMI:33.80, BP:112/64 weight is up 2 pounds since 11-19-23. * P ast Orders: L ab:Complete Blood Count Auto Diff (Order Date - 02/29/2024) (Collection Date - 02/29/2024) Value Reference Range White Blood Count 5.2 4.8-10.8 - X10*3/uL Red Blood Count 4.50 4.20-5.50 - X10*6/uL Hemoglobin 13.7 12.0-16.0 - g/dl Hematocrit 40.7 37.0-47.0 - % Mean Corpuscular Volume 90.4 80.0-98.0 - fL Mean Corpuscular Hemoglobin 30.4 27.0-33.0 - pg Mean Corpuscular HGB Conc 33.7 31.0-35.0 - g/ dl Red Cell Distribution Width 12.6 11.0-16.0 - % Platelet Count 166 160-400 - X10*3/uL Mean Platelet Volume 11.7 9.4-12.3 - fL Neutrophils Percent Auto 53.2 45-73 - % Imm Gran Pct Auto 0.4 0.0-0.4 - % Lymphocytes Percent Auto 34.6 20-40 - % Monocytes Percent Auto 9.3 2-11 - % Eosinophils Percent Auto 2.1 0-4 - % Basophils Percent Auto 0.4 0-2 - % NRBC Pct Auto 0.0 0.0-0.2 - /100WBC Neutrophils Absolute Auto 2.8 2.0-8.3 - x10* 3/uL Imm Gran Abs Auto 0.02 0.00-0.03 - X10*3/uL Lymphocytes Absolute Auto 1.8 1.2-4.9 - X10* 3/uL Monocytes Absolute Auto 0.5 0.1-1.2 - X10*3/ uL Eosinophils Absolute Auto 0.1 0.0-0.4 - X10* 3/uL Basophils Absolute Auto 0.0 0.0-0.2 - X10*3/ uL NRBC Abs Auto 0.000 0.0-0.012 - X10*3/uL L ab:Comprehensive [place]. Panel Fast (Order Date - 02/29/2024) (Collection Date - 02/29/2024) Value Reference Range Sodium 140 135-145 - mmol/L Bilirubin Total 0.5 0.0-1.0 - mg/dL Aspartate Amino Transferase 17 5-31 - U/L Alanine Aminotransferase 17 0-31 - U/L Total Protein 6.7 6.5-8.0 - g/dL Albumin Level 4.0 3.5-5.0 - g/dL Alkaline Phosphatase 56 39-117 - U/L Potassium 3.9 3.3-5.1 - mmol/L Chloride 107 96-108 - mmol/L Carbon Dioxide 25 22-29 - mmol/L Anion Gap 12 12-20 - Blood Urea Nitrogen 16 9-16 - mg/dL Creatinine 0.78 0.5-1.4 - mg/dL Estimated Glomerular Filt Rate > 60 - Glucose Fasting 108 H 60-99 - mg/dL Calcium 9.2 8.4-10.2 - mg/dL L ab:Lipid Panel (Order Date - 02/29/2024) (Collection Date - 02/29/2024) Value Reference Range Triglycerides 77 <150 - mg/dL Cholesterol 210 H <200 - mg/dL LDL Cholesterol Calculated 142 H <100 - mg/dL HDL Cholesterol 53 >40 - mg/dL L ab:UA ClnCatch+Micro w/rflx Cult (Order Date - 02/29/2024) (Collection Date - 02/29/2024) Value Reference Range Color Urine Yellow - Appearance Urine Clear - PH 5.5 5.0-9.0 - Glucose Urine UA Negative Negative - mg/dL Urine Blood Negative Negative - Specific [place] - Urine >= 1.030 H 1.005-1.025 - Urine Protein Negative Neg-Trace - mg/dL Urine Ketones Negative Negative - mg/dL Nitrite Urine Negative Negative - Leukocyte Esterase Urine Negative Negative - RBC Urine 0-2 0-2 - /HPF WBC Urine 0-5 0-5 - /HPF Squamous Epithelial Cell Urine 3-5 0-2 - /HP F Bacteria Urine None Seen None Seen - Hyaline Casts Urine 0-2 0-2 - /LPF * Examination: G eneral Examination: GENERAL APPEARANCE: w ell developed, well nourished, in no acute distress. HEAD: n ormocephalic, atraumatic. EYES: p upils equal, round, reactive to light and accommodation, sclera non-icteric. EARS: n ormal. ORAL CAVITY: m ucosa moist. THROAT: c lear. NECK/THYROID: n yesica supple, full range of motion, no cervical lymphadenopathy, no bruits. SKIN: w arm and dry, no suspicious lesions. HEART: r egular rate and rhythm, S1, S2 normal, no murmurs.? LUNGS: c lear to auscultation bilaterally. BREASTS: N o mass, no lump. ABDOMEN: s oft, nontender, nondistended, bowel sounds present, normal, no organomegaly , no masses palpable. RECTAL EXAM: d one by manual qa tester. FEMALE GENITOURINARY: d one by manual qa tester. EXTREMITIES: n o clubbing, cyanosis, or edema. NEUROLOGIC: n onfocal, motor strength normal upper and lower extremities, sensory exam intact. Assessment: * Assessment: 1. A nnual physical exam - Z00.00 (Primary) 2 . H istory of asthma - Z87.09 3 .?Stress incontinence in female - N39.3 4 . P re-diabetes - R73.03 5 . D ysthymia - F34.1 6 . D epression screening - Z13.31 Plan: * Treatment: 2. H istory of asthma Continue Levalbuterol Tartrate Aerosol, 45 MCG/ACT, 1 puff as needed, Inhalation, every 6 hrs; C ontinue Albuterol Sulfate HFA Aerosol Solution, 108 (90 Base) MCG/ACT, 1 puff as needed, Inhalation, every 4 hrs; C ontinue Montelukast Sodium Tablet, 10 MG, 1 tablet, Orally, Once a day. ? Notes: hardly ever uses inhaler/ told her to use it before exercise, will continue current regiment? 3. S tress incontinence in female Notes: is contemplating surgery 4. P re-diabetes Notes: needs to lose weight 5. D ysthymia Continue Citalopram Hydrobromide Tablet, 10 MG, 1 tablet, Orally, Once a day. Notes: doing better on meds, will continue current regiment 6. D epression screening Notes: negative screen * Immunizations: Fluarix Quadrivalent - 150 (Not administered - Refused: Patient decision) * Procedure Codes: * Follow Up: 6 Months (Reason: pre dm) * * Sign off status: Completed true * Provider: Chantelle Kelsey MD Date: Generated for Ronel iverson/Silvino/Jose Msmhernandez on: 07:57 PM EDT History and Physical Notes * HPI (History of Present Illness) Category Sub-Category Detail Notes Category Not es Symptom(s) patient is a 58 yo female here for annual visit with review of recent labs and follow up of chronic issues, here for yearly exam Depression Screening PHQ-9 Little inte rest or pleasure in doing things: Not at all Feeling down, depressed, or hopeless: No t at all Trouble falling or staying asleep, or sl eeping too much: Not at all Feeling tired or having little energy: N ot at all Poor appetite or overeating: Not at all Feeling bad about yourself o r that you are a failure, or have let yourself or your family down: Not at all Trouble concentrating on thi ngs, such as reading the newspaper or watching television: Not at all Moving or speaking so slowly that other people could have noticed; or the opposite, being so fidgety or restless that you have been moving around a lot more than usual: Not at all Thoughts that you would be b gricelda off or of hurting yourself in some way: Not at all Total Score: 0 Interpretation and Intervention Depression Cabrera gaspar Findings: Negative Follow-Up for Depression: : review of PH Q-9 found negative result, no follow-up needed SDOH Questions SDOH Questions In the past year have you been worried about losing housing?: No In the past year have you or any family members you live with been unable to get any of the following when it was really needed? Check all that apply:: None Communication Needs Communication Needs Does the patient have a hearing impairment: No Does the patient have a vision impairmen t?: Yes If yes, what is the vision impairment?: Glasses Does the patient have a cognition impair ment?: No Examination Category Sub-Category Detail Notes Category Not es General Examination GENERAL APPEARANCE: well dev eloped, well nourished, in no acute distress HEAD: normocephalic, atrau matic EYES: pupils equal, round, reactive to light and accommodation, sclera non-icteric EARS: normal THROAT: clear NECK/THYROID: neck supple, full ra nge of motion, no cervical lymphadenopathy, no bruits HEART: regular rate and rhy thm, S1, S2 normal, no murmurs LUNGS: clear to auscultatio n bilaterally ABDOMEN: soft, nontender, non distended, bowel sounds present, normal, no organomegaly , no masses palpable NEUROLOGIC: nonfocal, motor stre ngth normal upper and lower extremities, sensory exam intact SKIN: warm and dry, no franci picious lesions EXTREMITIES: no clubbing, cyanosi s, or edema BREASTS: No mass, no lump RECTAL EXAM: done by manual qa tester FEMALE GENITOURINARY: done by manual qa tester ORAL CAVITY: mucosa moist
--- OUTSIDE RECORDS SUMMARY | 2024-06-14 11:27 | XMS_ITS ---
Author Organization Darrian Kelsey MD Address [address] [id number] Care Team Providers Care Government Affairs Manager Name Role Phone Darrian Kelsey Primary Care Provider REASON FOR VISIT referral Encounters Encounter Location Date Provider Diagnosis Darrian Kelsey MD [address] [place] [address] [address] [place] [phone] 06/14/2024 Darrian Kelsey Plan Of Treatment Next Appt Details Provider Name:Darrian Gasca ier, 05/30/2025 08:30:00 AM, [address] [place] [address], [address], [phone], Provider Name:Darrian Gasca ier, 03/01/2026 07:00:00 AM, [address] [place] [address], [address], [phone], Provider Name:Darrian Gasca ierose, 03/08/2026 08:00:00 AM, [address] [place] [address], [phone], Progress Notes * Marco CASTROOB:1965 (58 yo F)Acc No.[id number]:06/14/2024 Patient: Roselia Alivia RUSSELL :1965 A ge:58 Y S ex:Female Address:[address] , [place] [place], [address] * true * Date: Generated for Printi zayra/Silvino/Jared on: 1 07:55 PM EDT
--- OUTSIDE RECORDS SUMMARY | 2024-09-08 05:15 | XMS_ITS ---
Author Organization Darrian Kelsey MD Address [address] [place], [place] [phone] Care Team Providers Care Military Communications Specialist Name Role Phone Darrian Kelsey Primary Care Provider Allergies Allergen (clinical drug ingredient) Drug/Non Drug Allergy documented on EMR Reaction Allergy Type Onset Date Status Keflex vomiting Drug Allergy Active 12 Hour Nasal [place] Unknown Drug Allergy Active REASON FOR VISIT 6 MO F/U PRE DM Video [phone], c/o temp 99.5 productive cough,headache, sore throat, [...] Status W/U Status Risk Notes Problem Sinusitis (05672591) Sinusitis (J32.9) Active confirmed Vital Signs Height 64.5 in 09/08/2024 Weight 197 lbs 09/08/2024 BMI 33.29 kg/m2 09/08/2024 weight is 197 BP not taken Encounters Encounter Location Date Provider Diagnosis Darrian Kelsey MD [address] [place] [phone] 09/08/2024 Darrian Kelsey Acute asthma J45.909 and [...] use Next Appt Details Provider Name:Darrian ramos, 05/30/2025 08:30:00 AM, [address] [place] [address], [address], [phone], Provider Name:Darrian ramos, 03/01/2026 07:00:00 AM, [address] [place] [address], [phone], Provider Name:Darrian ramos, 03/08/2026 08:00:00 AM, [address] [place] [address], [phone], Progress Notes * Namita CASTRO:1965 (59 yo F)Acc No.[id number]:09/08/2024 Progress Notes Patient: Alivia OMER Provider: Chantelle Kelsey MD :1965 A ge:59 Y S ex:Female Date:09/08/2024 Address:[address] [place] [address] , [address] [facility] Subjective: * Chief Complaints: * 6 MO F/U PRE DM Video [phone]/o temp 99.5 productive cough,headache, sore throat, muscle pain runny nose, congestion x 5 days did not test for Covid * HPI: S ymptom(s): Telehealth L ocation of provider rendering services: [address], [address], L ocation [...] MD Date: 0 09/08/2024 Generated for Ronel iverson/Silvino/Jared on: 1 07:56 PM EDT History and Physical Notes * HPI (History of Present Illness) Category Sub-Category Detail Notes Category Not es Symptom(s) Telehealth Location [facility] rendering services:: [address] [place] [address], [address] patient is a 59 yo [...]
--- OUTSIDE RECORDS SUMMARY | 2024-10-06 05:59 | XMS_ITS ---
Author Organization Darrian Kelsey MD Address [address] [place] [phone] Care Team Providers Care Display Designer Outside Name Role Phone Darrian Kelsey Primary Care [...] Location Date Provider Diagnosis Darrian Kelsey MD [address] [place] [address] Drive [address] [place] [phone] 10/06/2024 Darrian Kelsey Acute asthma J45.909 Assessments [...] Provider Name:Darrian Gasca ier, 05/30/2025 08:30:00 AM, [address], [address], [place], [phone], Provider Name:Darrian solaresr, 03/01/2026 07:00:00 AM, [address], [address], [place], [phone], Provider Name:Darrian Gasca ier, 03/08/2026 08:00:00 AM, [address], [address], [place], [phone], Progress Notes * Marco CASTROOB:1965 (59 yo F)Acc No.[id number]:10/06/2024 Patient: Alivia OMER :1965 A ge:59 Y S ex:Female Address:[address] [place] [address] , [place], [address] * Refills Refill predniSONE Tablet, 10 MG, [...] * Date: Generated for Ronel iverson/Silvino/Aspenitting on: 07:55 PM EDT
--- OUTSIDE RECORDS SUMMARY | 2024-11-24 05:06 | XMS_ITS ---
Author Organization Darrian Kelsey MD Address [address] [facility] [address] [place] [phone] Care Team Providers Care Hand Spray Operator Name Role Phone Darrian Kelsey Primary Care Provider REASON FOR VISIT referral Encounters Encounter Location Date Provider Diagnosis Darrian Kelsey MD [address] [place] [address] [place] [phone] 11/24/2024 Darrian Kelsey Plan Of Treatment Next Appt Details Provider Name:Darrian Gasca ier, 05/30/2025 08:30:00 AM, [address] [place] [address], [address], [phone], Provider Name:Darrian Gasca ier, 03/01/2026 07:00:00 AM, [address] [place] [address], [address], [phone], Provider Name:Darrian Gasca ier, 03/08/2026 08:00:00 AM, [address] [place] [address], [address], [phone], Progress Notes * Marco CASTROOB:1965 (59 yo F)Acc No.[id number]:11/24/2024 Patient: Roselia Alivia RUSSELL :1965 A ge:59 Y S ex:Female Address:[address] , [address] [facility] [place], [address] * true * Date: Generated for Printi zayra/Silvino/Jared on: 1 07:55 PM EDT
--- OUTSIDE RECORDS SUMMARY | 2024-12-20 07:45 | XMS_ITS ---
Author Organization Darrian Kelsey MD Address [address] [place], [place] [phone] Care Team Providers Care Solar Applications Development Engineer Name Role Phone Darrian Kelsey Primary Care Provider Allergies Allergen (clinical drug ingredient) Drug/Non Drug Allergy documented on EMR Reaction Allergy Type Onset Date Status Keflex vomiting Drug Allergy Active 12 Hour Nasal [place] Unknown Drug Allergy Active REASON FOR VISIT [...] Status W/U Status Risk Notes Problem Sciatica (67282007) Sciatica (M54.30) Active confirmed Vital Signs Blood pressure systolic 92 mm Hg 12/21/19 25 Blood pressure diastolic 60 mm Hg 025 Height 64.5 in 12/20/2024 Weight 205 lbs 12/20/2024 BMI 34.64 kg/m2 12/20/2024 weight is up 8 pounds since 09-08-24 Encounters Encounter Location Date Provider Diagnosis Darrian Kelsey MD [address] [place] [phone] 12/20/2024 Darrian Kelsey Sciatica M54.30 Assessments Encounter [...] Details Provider Name:Darrian ramos, 05/30/2025 08:30:00 AM, [address] [place] [address], [address], [phone], Provider Name:Darrian ramos, 03/01/2026 07:00:00 AM, [address] [place] [address], [address], [phone], Provider Name:Darrian ramos, 03/08/2026 08:00:00 AM, [address] [place] [address], [address], [phone], Progress Notes * Namita CASTRO:1965 (59 yo F)Acc No.[id number]:12/20/2024 Progress Notes Patient: Alivia OMER Provider: Chantelle Kelsey MD :1965 A ge:59 Y S ex:Female Date:12/20/2024 Address:[address] [place] [address] , [id number] Subjective: * Chief Complaints: * S CIATICA [...] strength normal. Assessment: * Assessment: 1. S ciatica - M54.30 (Primary) Plan: * Treatment: 2. [...] 0 12/20/2024 Generated for Ronel iverson/Silvino/Aspenitting on: 07:55 PM EDT History and Physical Notes * [...]
--- OUTSIDE RECORDS SUMMARY | 2024-12-22 05:58 | XMS_ITS ---
Author Organization Darrian Kelsey MD Address [address] [place] [phone] Care Team Providers Care Director Of Financial Planning Name Role Phone Darrian Kelsey Primary Care Provider REASON FOR VISIT med isusue Medications Medication SIG (Take, Route, Frequency, Duration) Notes Start Date End Date Status Cyclobenzaprine HCl 5 MG 1 tablet at bed time as needed Orally twice a day for 10 days 12/20/2024 Active Encounters Encounter Location Date Provider Diagnosis Darrian Kelsey MD [address] [place] [address] [place] [phone] 12/22/2024 Darrian Kelsey Sciatica M54.30 Assessments Encounter Date Diagnosis (ICD Code) Assessment Notes Treatment Notes Treatment Clinical Notes Section Notes 12/22/2024 Sciatica (ICD-10 - M54.30) Plan Of Treatment Medication Medication Name Sig Start Date Stop Date Notes Cyclobenzaprine HCl 5 MG 1 tablet at bed time as needed Orally twice a day for 10 days 12/20/2024 Next Appt Details Provider Name:Darrian ramos, 05/30/2025 08:30:00 AM, [address] [place] [address], [address], [phone], Provider Name:Darrian ramos, 03/01/2026 07:00:00 AM, [address] [place] [address], [address], [phone], Provider Name:Darrian ramos, 03/08/2026 08:00:00 AM, [address] [place] [address], [place] [address], [place], [place], [phone], Progress Notes * Marco CASTROOB:1965 (59 yo F)Acc No.[id number]:12/22/2024 Patient: Alivia OMER :1965 A ge:59 Y S ex:Female Address:[address] [place] [address] [address] , [place], [address] * Refills Refill Cyclobenzaprine HCl Tablet, 5 MG, Orally, 20 Tablet, 1 tablet at bedtime as needed, twice a day, 10 days * true * Date: Generated for Ronel iverson/Silvino/Aspenitting on: 07:54 PM EDT
--- OUTSIDE RECORDS SUMMARY | 2025-02-17 06:27 | XMS_ITS ---
Author Organization Darrian Kelsey MD Address [address] [place] [phone] Care Team Providers Care Compliance Intern Name Role Phone Darrian Kelsey Primary Care Provider REASON FOR VISIT RX FOR EYES Medications Medication SIG (Take, Route, Frequency, Duration) Notes Start Date End Date Status Ocuflox 0.3 % 2 drops Ophthalmic 4 times a day for 7 days 02/17/2025 Active Encounters Encounter Location Date Provider Diagnosis Darrian Kelsey MD [address] [place] [address] [address] [place] [id number] 02/17/2025 Darrian Kelsey Plan Of Treatment Medication Medication Name Sig Start Date Stop Date Notes Ocuflox 0.3 % 2 drops Ophthalmic 4 times a day for 7 days 02/17/2025 Next Appt Details Provider Name:Darrian ramos, 05/30/2025 08:30:00 AM, [address] [place] [address], [address], [phone], Provider Name:Darrian ramos, 03/01/2026 07:00:00 AM, [address] [place] [address], [address], [phone], Provider Name:Darrian ramos, 03/08/2026 08:00:00 AM, [address] [place] [address], [address], [phone], Progress Notes * Marco CASTROOB:1965 (59 yo F)Acc No.[id number]:02/17/2025 Patient: Alivia OMER :1965 A ge:59 Y S ex:Female Address:[address] [place] [address] , [place], [address] * Refills Start Ocuflox Solution, 0.3 %, Ophthalmic, 2.8 ML, 2 drops, 4 times a day, 7 days * true * Date: Generated for Ronel iverson/Silvino/Jose Msmitting on: 1 07:56 PM EDT
--- OUTSIDE RECORDS SUMMARY | 2025-02-28 03:00 | XMS_ITS ---
Author Organization Darrian Kelsey MD Address [address] [place], [place] [phone] Care Team Providers Care Electrical Engineering Professor Name Role Phone Darrian Kelsey Primary Care Provider Results Component Value Reference Range Notes Complete Blood Count Auto Di ff Reviewed date:03/01/2025 07:52:48 AM Interpretation: Performing Lab:[facility], [address] [place] [phone] Notes/Report: White Blood Count 4.9 4.8-10.8 X10*3/uL Red Blood Count 4.46 4.20-5.50 X10*6/uL Hemoglobin 13.4 12.0-16.0 g/dl Hematocrit 40.1 37.0-47.0 % Mean Corpuscular Volume 89.9 80.0-98.0 fL Mean Corpuscular Hemoglobin 30.0 27.0-33.0 pg Mean Corpuscular HGB Conc 33.4 31.0-35.0 g/dl Red Cell Distribution Width 12.3 11.0-16.0 % Platelet Count 167 160-400 X10*3/uL Mean Platelet Volume 11.5 9.4-12.3 fL Neutrophils Percent Auto 58.6 45-73 % Imm Gran Pct Auto 0.2 0.0-0.4 % Lymphocytes Percent Auto 29.2 20-40 % Monocytes Percent Auto 9.6 2-11 % Eosinophils Percent Auto 2.0 0-4 % Basophils Percent Auto 0.4 0-2 % NRBC Pct Auto 0.0 0.0-0.2 /100WBC Neutrophils Absolute Auto 2.9 2.0-8.3 x10*3/u L Imm Gran Abs Auto 0.01 0.00-0.03 X10*3/uL Lymphocytes Absolute Auto 1.4 1.2-4.9 X10*3/u L Monocytes Absolute Auto 0.5 0.1-1.2 X10*3/uL Eosinophils Absolute Auto 0.1 0.0-0.4 X10*3/u L Basophils Absolute Auto 0.0 0.0-0.2 X10*3/uL NRBC Abs Auto 0.000 0.0-0.012 X10*3/uL Comprehensive [place]. Panel Fa st Reviewed date:03/01/2025 08:23:08 AM Interpretation: Performing Lab:[address] [phone] Notes/Report: Sodium 141 135-145 mmol/L Potassium 4.1 3.3-5.1 mmol/L Chloride 106 96-108 mmol/L Carbon Dioxide 29 22-29 mmol/L Anion Gap 10 12-20 Blood Urea Nitrogen 14 9-16 mg/dL Creatinine 0.72 0.5-1.4 mg/dL Estimated Glomerular Filt Rate > 60 Chronic Kidney Disease: Estimated GFR < 60 mL/min/1.73m2 Severe Kidney Disease: Estimated GFR < 15 mL/min/1.73m2 Glucose Fasting 106 60-99 mg/dL A fasting glucose from 100-125 mg/dl is considered impaired (pre-diabetes). Calcium 8.9 8.4-10.2 mg/dL Bilirubin Total 0.6 0.0-1.0 mg/dL Aspartate Amino Transferase 20 5-31 U/L Alanine Aminotransferase 19 0-31 U/L Total Protein 6.5 6.5-8.0 g/dL Albumin Level 4.1 3.5-5.0 g/dL Alkaline Phosphatase 52 39-117 U/L Lipid Panel Reviewed date:03/01/2025 07:52:57 AM Interpretation: Performing Lab:[address] [address] Notes/Report: Triglycerides 91 <150 mg/dL Desirable Triglyceride: less than 150 mg/dL Borderline High Triglyceride 150-199 mg/dL High Triglyceride: 200-499 mg/dL Very High Triglyceride: greater than or equal to 5OO mg/dL Cholesterol 196 <200 mg/dL Desirable Cholesterol: less than 200 mg/dL Borderline High Cholesterol: 200-239 mg/dL High Cholesterol: greater than 239 mg/dL LDL Cholesterol Calculated 131 <100 mg/dL Desirable LDL: less than 100 mg/dL Near Optimal/Above Optimal LDL: 110-129 mg/dL Borderline High LDL: 130-159 mg/dL High LDL: 160-189 mg/dL Very High LDL: greater than or equal to 190 mg/dL HDL Cholesterol 47 >40 mg/dL Desirable HDL: greater than 40 mg/dL Note: This HDL assay may give artificially low results in patients with liver disease. UA ClnCatch+Micro w/rflx Cul t Reviewed date:03/01/2025 07:53:18 AM Interpretation: Performing Lab:[facility], [address] [place] [phone] Notes/Report: Urine, Clean Catch Color Urine Yellow Appearance Urine Clear PH 5.5 5.0-9.0 Glucose Urine UA Negative Negative mg/dL Urine Blood Negative Negative Specific [place] - Urine 1.020 1.005-1.025 Urine Protein Negative Neg-Trace mg/dL Urine Ketones Negative Negative mg/dL Nitrite Urine Negative Negative Leukocyte Esterase Urine Small (1+) Negative RBC Urine 0-2 0-2 /HPF WBC Urine 0-5 0-5 /HPF Squamous Epithelial Cell Urine 3-5 0-2 /HPF Bacteria Urine None Seen None Seen Hyaline Casts Urine 0-2 0-2 /LPF REASON FOR VISIT FASTING LABS Encounters Encounter Location Date Provider Diagnosis Darrian Kelsey MD [address] [place] [address] [place] [id number] 02/28/2025 Darrian Kelsey Blood tests for routine general physical examination Z00.00 Assessments Encounter Date Diagnosis (ICD Code) Assessment Notes Treatment Notes Treatment Clinical Notes Section Notes 02/28/2025 Blood tests for routine general physical examination (ICD-10 - Z00.00) Plan Of Treatment Next Appt Details Provider Name:Darrian ramos, 05/30/2025 08:30:00 AM, [address] [place] [address], Suite [facility], [place], [place], [phone], Provider Name:Darrian ramos, 03/01/2026 07:00:00 AM, [address], [address], [place], [place], [phone], Provider Name:Darrian Gasca ier, 03/08/2026 08:00:00 AM, [address], [address], [place], [place], [phone], Progress Notes * Marco CASTROOB:1965 (59 yo F)Acc No.[id number]:02/28/2025 Progress Note Patient: Alivia OMER Provider: Chantelle Kelsey MD :1965 A ge:59 Y S ex:Female Date:02/28/2025 Address:[address] [place] [address] , [phone] Subjective: * Chief Complaints: * 1 . FASTING LABS. * Medical History: Objective: * Vitals: Assessment: * Assessment: 1. B lood tests for routine general physical examination - Z00.00 (Primary) Plan: * Treatment: * Procedure Codes: 3 6415 VENIPUNCT, ROUTINE* * * The named appointment provid er may or may not be the originator of this progress note, and it is not deemed complete until electronically signed by the appointment provider. Sign off status: Pending * Provider: Chantelle Kelsey MD Date: Generated for Ronel iverson/Silvino/Jose Msmitting on: 07:55 PM EDT
--- OUTSIDE RECORDS SUMMARY | 2025-03-07 04:30 | XMS_ITS ---
Author Organization Darrian Kelsey MD Address [address] [place] [phone] Care Team Providers Care Review Consultant Name Role Phone Darrian Kelsey Primary Care Provider [phone] Allergies Allergen (clinical drug ingredient) Drug/Non Drug Allergy documented on EMR Reaction Allergy Type Onset Date Status Keflex vomiting Drug Allergy Active 12 Hour Nasal [place] Unknown Drug Allergy Active REASON FOR VISIT ANNUAL EXAM Medications Medication SIG (Take, Route, Frequency, Duration) Notes Start Date End Date Status Symbicort 80-4.5 MCG/ACT as directed Inhalation Active Albuterol Sulfate HFA 108 (90 Base) MCG/ACT 1 puff as needed Inhalation every 4 hrs for 30 days 09/08/2024 Active Montelukast Sodium 10 MG TAKE 1 TABLET B Y MOUTH EVERY DAY FOR 90 DAYS for 90 Active Citalopram Hydrobromide 10 MG TAKE 1 TABLET BY MOUTH EVERY DAY FOR 90 DAYS for 90 Active Ocuflox 0.3 % 2 drops Ophthalmic 4 times a day for 7 days 02/17/2025 Active Immunizations Vaccine Route Administration Date Status Comme nts Fluarix Quadrivalent - 150 Unknown 03/07/2025 Refused Social History Tobacco Use: Social History [...] Interpretation Negative Vital Signs Blood pressure systolic 114 mm Hg 03/07/20 25 Blood pressure diastolic 70 mm Hg 025 Height 64.5 in 03/07/2025 Weight 208 lbs 03/07/2025 BMI 35.15 kg/m2 03/07/2025 weight is up 3 pounds since 12-20-24 Encounters Encounter Location Date Provider Diagnosis Darrian Kelsey MD [address] [place] [address] [place] [id number] 03/07/2025 Darrian Kelsey Acute asthma J45.909 ; Annual physical exam Z00.00 ; Dysthymia F34.1 and Depression screening Z13.31 Assessments Encounter Date Diagnosis (ICD Code) Assessment Notes Treatment Notes Treatment Clinical Notes Section Notes 03/07/2025 Acute asthma (ICD-10 - J45.909) need resilts of pulmonary function tests/ needs to start suing inhalers. and needs to see eye doctor will request PFT report/ patient will set up her own eye exan appt 03/07/2025 Annual physical exam (ICD-10 - Z00.00) labs reviewed and discussed with patient 03/07/2025 Dysthymia (ICD-10 - F34.1) stable, felicia continue current regiment 03/07/2025 Depression screening (ICD-10 - Z13.31) negative screen Plan Of Treatment Treatment Notes Assessment Notes Acute asthma need resilts of pulm onary function tests/ needs to start suing inhalers. and needs to see eye doctor will request PFT report/ patient will set up her own eye exan appt Annual physical exam labs reviewed and d iscussed with patient Dysthymia stable, felicia continue current regiment Depression screening negative screen Next Appt Details Follow Up: 3 Months, Reason: Provider Name:Darrian ramos, 05/30/2025 08:30:00 AM, [address] [place] [address], Suite [facility], [place], [place], [phone], Provider Name:Darrian ramos, 03/01/2026 07:00:00 AM, [address] [place] [address], Suite [facility], [place], [place], [phone], Provider Name:Darrian ramos, 03/08/2026 08:00:00 AM, [address] [place] [address], [address], [phone], Progress Notes * Marco CASTROOB:1965 (59 yo F)Acc No.[id number]:03/07/2025 Progress Notes Patient: Alivia OMER Provider: Chantelle Kelsey MD :1965 A ge:59 Y S ex:Female Date:03/07/2025 Address:[address] [place], [place] [phone] Subjective: * Chief Complaints: * A NNUAL [...] oes the patient have a hearing impairment Y es, I f yes, what is the hearing impairment? H derek of hearing, Hearing Aids, D oes the patient have a vision impairment? Y es, I f yes, what is the vision impairment? G lasses, D oes the patient have a cognition impairment? N o. F all Risk: History H ave you had any falls with injury in the past year? N o, H ave you had two or more falls in the past year? N o. S PAM Questions: SDOH Questions I n the past year have you been worried about losing housing? N o, I n the past year have you or any family members you live with been unable to get any of the following when it was really needed? Check all that apply: N one. S ymptom(s): patient is a 59 yo female here for annual visit with review if recent labs and follow up of chronic issues,still with some pink eye symptoms. has trouble with exertion as is out of shape. can't exercise due to shortness of breath. * ROS: G eneral/Constitutional: Change in appetite d enies. C hills d enies. F ever d enies. O phthalmologic: Blurred vision d enies. D ischarge d enies. P ain d enies. E NT: Decreased hearing d enies. S ore throat d enies.?Swollen glands d enies. E ndocrine: Cold intolerance d enies. E xcessive thirst d enies. H eat intolerance d enies. W eight loss d enies. R espiratory: Cough d enies. S hortness of breath at rest d enies. S hortness of breath with exertion d enies. W heezing d enies. C ardiovascular: Chest pain at rest d enies. C hest pain with exertion?denies. I rregular heartbeat d enies. S hortness of breath d enies. ? G astrointestinal: Abdominal pain d enies. C hange in bowel habits d enies. D iarrhea d enies. N ausea d enies. R ectal bleeding d enies. V omiting d enies . G enitourinary: Blood in urine d enies. D ifficulty urinating d enies. F requent urination d enies. U rinary incontinence D enies. M usculoskeletal: Painful joints d enies. W eakness d enies. ? S kin: Dry skin d enies. I [...] , I nterpretation N egative. M iscellaneous: C affeine: no. Children: yes. Exercise: no. Home smoke detector use: no. Marital status: . Travel outside of the [place]: no. * Medications: T akingSymbicort 80-4.5 MCG/ACT Aerosol as directed Inhalation Albuterol Sulfate HFA 108 (90 Base) MCG/ACT Aerosol Solution 1 puff as needed Inhalation every 4 hrs Montelukast Sodium 10 MG Tablet TAKE 1 TABLET BY MOUTH EVERY DAY FOR 90 DAYS Citalopram Hydrobromide 10 MG Tablet TAKE 1 TABLET BY MOUTH EVERY DAY FOR 90 DAYS Ocuflox 0.3 % Solution 2 drops Ophthalmic 4 times a day Medication List reviewed and reconciled with the patientTaking Symbicort 80-4.5 MCG/ACT Aerosol as directed Inhalation Taking Albuterol Sulfate HFA 108 (90 Base) MCG/ACT Aerosol Solution 1 puff as needed Inhalation every 4 hrs Taking Montelukast Sodium 10 MG Tablet TAKE 1 TABLET BY MOUTH EVERY DAY FOR 90 DAYS Taking Citalopram Hydrobromide 10 MG Tablet TAKE 1 TABLET BY MOUTH EVERY DAY FOR 90 DAYS Taking Ocuflox 0.3 % Solution 2 drops Ophthalmic 4 times a day Medication List reviewed and reconciled with the patient * Allergies: 1 2 Hour Nasal SprayKeflex: vomitingyes[Allergies Verified] Objective: * Vitals: H t: 64.5, Wt: 208, BMI:35.15, BP:114/70, Wt-k.35. weight is up 3 pounds since 12-20-24. * P ast Orders: L ab:Urine Culture (Order Date - 02/28/2025) (Collection Date & Time - 02/28/2025) Value Reference Range Urine Culture Susceptibility not routinely performed on this isolate. - O:STRAGA Strep agalactiae (Grp B) - L ab:Comprehensive [place]. Panel Fast (Order Date - 02/28/2025) (Collection Date & Time - 02/28/2025 07:00 AM) Value Reference Range Sodium 141 135-145 - mmol/L Bilirubin Total 0.6 0.0-1.0 - mg/dL Aspartate Amino Transferase 20 5-31 - U/L Alanine Aminotransferase 19 0-31 - U/L Total Protein 6.5 6.5-8.0 - g/dL Albumin Level 4.1 3.5-5.0 - g/dL Alkaline Phosphatase 52 39-117 - U/L Potassium 4.1 3.3-5.1 - mmol/L Chloride 106 96-108 - mmol/L Carbon Dioxide 29 22-29 - mmol/L Anion Gap 10 L 12-20 - Blood Urea Nitrogen 14 9-16 - mg/dL Creatinine 0.72 0.5-1.4 - mg/dL Estimated Glomerular Filt Rate > 60 - Glucose Fasting 106 H 60-99 - mg/dL Calcium 8.9 8.4-10.2 - mg/dL L ab:Lipid Panel (Order Date - 02/28/2025) (Collection Date & Time - 02/28/2025 07:00 AM) Value Reference Range Triglycerides 91 <150 - mg/dL Cholesterol 196 <200 - mg/dL LDL Cholesterol Calculated 131 H <100 - mg/dL HDL Cholesterol 47 >40 - mg/dL L ab:UA ClnCatch+Micro w/rflx Cult (Order Date - 02/28/2025) (Collection Date & Time - 02/28/2025 07:00 AM) Value Reference Range Color Urine Yellow - Appearance Urine Clear - PH 5.5 5.0-9.0 - Glucose Urine UA Negative Negative - mg/dL Urine Blood Negative Negative - Specific [place] - Urine 1.020 1.005-1.025 - Urine Protein Negative Neg-Trace - mg/dL Urine Ketones Negative Negative - mg/dL Nitrite Urine Negative Negative - Leukocyte Esterase Urine Small (1+) A Negative - RBC Urine 0-2 0-2 - /HPF WBC Urine 0-5 0-5 - /HPF Squamous Epithelial Cell Urine 3-5 0-2 - /HPF Bacteria Urine None Seen None Seen - Hyaline Casts Urine 0-2 0-2 - /LPF L ab:Complete Blood Count Auto Diff (Order Date - 02/28/2025) (Collection Date & Time - 02/28/2025 07:00 AM) Value Reference Range White Blood Count 4.9 4.8-10.8 - X10*3/uL Red Blood Count 4.46 4.20-5.50 - X10*6/uL Hemoglobin 13.4 12.0-16.0 - g/dl Hematocrit 40.1 37.0-47.0 - % Mean Corpuscular Volume 89.9 80.0-98.0 - fL Mean Corpuscular Hemoglobin 30.0 27.0-33.0 - pg Mean Corpuscular HGB Conc 33.4 31.0-35.0 - g/ dl Red Cell Distribution Width 12.3 11.0-16.0 - % Platelet Count 167 160-400 - X10*3/uL Mean Platelet Volume 11.5 9.4-12.3 - fL Neutrophils Percent Auto 58.6 45-73 - % Imm Gran Pct Auto 0.2 0.0-0.4 - % Lymphocytes Percent Auto 29.2 20-40 - % Monocytes Percent Auto 9.6 2-11 - % Eosinophils Percent Auto 2.0 0-4 - % Basophils Percent Auto 0.4 0-2 - % NRBC Pct Auto 0.0 0.0-0.2 - /100WBC Neutrophils Absolute Auto 2.9 2.0-8.3 - x10* 3/uL Imm Gran Abs Auto 0.01 0.00-0.03 - X10*3/uL Lymphocytes Absolute Auto 1.4 1.2-4.9 - X10* 3/uL Monocytes Absolute Auto 0.5 0.1-1.2 - X10*3/ uL Eosinophils Absolute Auto 0.1 0.0-0.4 - X10* 3/uL Basophils Absolute Auto 0.0 0.0-0.2 - X10*3/ uL NRBC Abs Auto 0.000 0.0-0.012 - X10*3/uL * Examination: G eneral Examination: GENERAL APPEARANCE: [...] LUNGS: c lear to auscultation bilaterally. BREASTS: d one by oil scout. ABDOMEN: s oft, nontender, nondistended, bowel sounds present, normal, no organomegaly , no masses palpable. RECTAL EXAM: d one by oil scout. FEMALE GENITOURINARY: d one by oil scout. EXTREMITIES: n o clubbing, cyanosis, or edema. NEUROLOGIC: n onfocal, motor strength normal upper and lower extremities, sensory exam intact. Assessment: * Assessment: 1. A nnual physical exam - Z00.00 (Primary) 2 . A cute asthma - J45.909? 3. D ysthymia - F34.1 4 . D epression screening - Z13.31 ? Plan: * Treatment: 2. A cute asthma Notes: need resilts of pulmonary function tests/ needs to start suing inhalers. and needs to see eye doctor will request PFT report/ patient will set up her own eye exan appt 3. D ysthymia Notes: stable, felicia continue current regiment 4. D epression screening Notes: negative screen * Immunizations: Fluarix Quadrivalent - 150 (Not administered - Refused: Patient decision) * Procedure Codes: * Preventive Medicine: Counseling: C are goal follow-up plan: C ounseling for abnormal BMI provided?Yes, A robert Normal BMI Follow-up G iving encouragement to exercise. * Follow Up: 3 Months * * Sign off status: Completed true * Provider: Chantelle Kelsey MD Date: Generated for Ronel iverson/Silvino/eTreggiesmitting on: 07:56 PM EDT History and Physical Notes * HPI (History of Present Illness) Category Sub-Category Detail Notes Category Not es Symptom(s) patient is a 59 yo female here for annual visit with review if recent labs and follow up of chronic issues,still with some pink eye symptoms. has trouble with exertion as is out of shape. can't exercise due to shortness of breath. Depression Screening PHQ-9 Little inte rest or [...] really needed? Check all that apply:: None Fall Risk History Have you had any falls with injury i n the past year?: No Have you had two or more falls in the st year?: No Communication Needs Communication Needs Does the patient have a hearing impairment: Yes If yes, what is the hearing impairment?: Hard of hearing, Hearing Aids Does the patient have a vision impairmen [...] no clubbing, cyanosi s, or edema BREASTS: done by oil scout RECTAL EXAM: done by oil scout FEMALE GENITOURINARY: done by oil scout ORAL CAVITY: mucosa moist
--- OUTSIDE RECORDS SUMMARY | 2025-03-22 19:55 | XMS_ITS | Patient Health Record ---
Author Organization [facility] Address [address] [place] [address] Care Team Providers Care Piece Goods Packer Name Role Phone David Colon MD Primary Care Provider Unavail able Scott Dejesus Unavailable [phone] Reason For Referral No Information Medications Medication SIG (Take, Route, Fr equency, Duration) Notes Start Date End Date Status NexIUM 20 MG 1 capsule Orally Onc e a day; Duration: 30 day(s) 01/05/2013 Active Omeprazole 20 MG 1 capsule Orally Onc e a day; Duration: 30 day(s) 08/30/2012 Active Plan Of Treatment No Information Insurance Providers Payer Name Payer Address Payer Phone Subscriber Number Group Number Insured Name Patient Relationship to Insured Coverage Start Date Coverage End Date O [employer] [address] [place] [address] [id number] WERO CASTRO Self - patient is the insured
--- OUTSIDE RECORDS SUMMARY | 2025-03-22 19:57 | XMS_ITS | Patient Health Record ---
Author Organization Darrian Kelsey MD Address [address] [place], [place] [id number] Care Team Providers Care Hopper Filler Name Role Phone Darrian Kelsey Primary Care Provider Allergies Allergen (clinical drug ingredient) Drug/Non Drug Allergy documented on EMR Reaction Allergy Type Onset Date Status Keflex vomiting Drug Allergy Active 12 Hour Nasal Worden Unknown Drug Allergy Active Results Component Value Reference Range Notes XR chest 2V Reviewed date:11/17/2024 12:52:15 PM Interpretation: Performing Lab: Notes/Report: [address] [address] XRay Report Signed Patient: Alivia Marrufo MR#: [id number] 75 : 1965 Acct:[id number] Age/Sex: 59 / F ADM Date: 11/17/24 Loc: HO.XRAY Attending Dr: Nigel Hamilton MD Ordering Physician: Nigel Hamilton MD Date of Service: 11/17/24 Procedure(s): XR chest 2V Accession Number(s): [id number] cc: Darrian Kelsey MD; Nigel Hamilton MD [...] in OV> 11/17/24946 DD/ 9 TD/TT: 11/17/24935 Aerospace Engineer: [address] [address] XRay Report Signed Patient: Christiano Marrufo MR#: [id number] [birth year] : 1965 Acct:[id number] Age/Sex: 59 / F ADM Date: 11/17/24 Loc: ROBIN Attending Dr: Nigel Hamilton MD Ordering Physician: Nigel Hamilton MD Date of Service: 11/17/24 Procedure(s): XR [address] st 2V Accession Number(s): [id number] cc: Darrian Kelsey MD; Nigel Hamilton MD [...] in OV> 11/17/24946 DD/ 9 TD/TT: 11/17/24935 Aerospace Engineer: Neymar Ybarra Reviewed date:03/01/2025 07:52:05 AM Interpretation: Performing Lab:[facility], [address] [place] [phone] Notes/Report: Neymar Ybarra See Note Specimen held untested for 24 hours; Call to request Chemistry testing. Urine Culture Reviewed date:03/01/2025 04:15:43 PM Interpretation: Performing Lab:[facility], [address] [place] [phone] Notes/Report: O:STRAGA Strep agalactiae (Gr p B) Urine Culture Quant Urine Culture 10,000 to 50,000 cfu/mL Urine Culture Susc N/A Urine Culture Susceptibility not routinely performed on this isolate. Complete Blood Count Auto Di ff Reviewed date:03/01/2025 07:52:48 AM Interpretation: Performing Lab:[facility], [address] [place] [phone] Notes/Report: White Blood Count 4.9 4.8-10.8 X10*3/uL [...] NRBC Abs Auto 0.000 0.0-0.012 X10*3/uL Comprehensive Otho. Panel Fa st Reviewed date:03/01/2025 08:23:08 AM Interpretation: Performing Lab:[facility], [address] [place] [phone] Notes/Report: Sodium 141 135-145 mmol/L Potassium 4.1 [...] Panel Reviewed date:03/01/2025 07:52:57 AM Interpretation: Performing Lab:[facility], [address] [place] [phone] Notes/Report: Triglycerides 91 <150 mg/dL Desirable Triglyceride: [...] t Reviewed date:03/01/2025 07:53:18 AM Interpretation: Performing Lab:[facility], [address] [place] [phone] Notes/Report: Urine, Clean Catch Color Urine Yellow Appearance Urine Clear PH 5.5 5.0-9.0 Glucose Urine UA Negative Negative mg/dL Urine Blood Negative Negative Specific [place] - Urine 1.020 1.005-1.025 Urine Protein Negative [...] Fluarix Quadrivalent - 150 Unknown 03/03/2024 Refused Fluarix Quadrivalent - 150 Unknown 03/07/2025 Refused [...] Status W/U Status Risk Notes Problem Sciatica (49287204) Sciatica (M54.30) Active confirmed Problem Sinusitis (96115364) Sinusitis (J32.9) Active confirmed Problem 90217286 Dysthymia (F34.1) Active confirmed Problem 608239319 History of asthm a (Z87.09) Active confirmed Problem 167254401 Acute asthma (J45.909) Active confirmed Problem 39266650 Stress incontinence in female (N39.3) Active confirmed Vital Signs Blood pressure diastolic 70 mm Hg 03/07/2025 susie ght is up 3 pounds since 12-20-24 Height 64.5 in 03/07/2025 weight is up 3 pounds since 12-20-24 Blood pressure systolic 114 mm Hg 03/07/2025 weig ht is up 3 pounds since 12-20-24 Weight 208 lbs 03/07/2025 weight is up 3 pounds since 12-20-24 BMI 35.15 kg/m2 03/07/2025 weight is up 3 pounds since 12-20-24 Encounters Encounter Location Date Provider Diagnosis Darrian Kelsey MD [address] [place] [id number] 03/07/2025 Darrian Kelsey Acute asthma J45.909 ; Annual physical exam Z00.00 ; Dysthymia F34.1 and Depression screening Z13.31 Darrian Kelsey MD [address] [place] [id number] 02/28/2025 Darrian Kelsey Blood tests for routine general physical examination Z00.00 Darrian Kelsey MD [address] [place] [id number] 09/08/2024 Darrian Kelsey Acute asthma J45.909 and Sinusitis J32.9 Darrian Kelsey MD [address] [place] [id number] 12/20/2024 Darrian Kelsey Sciatica M54.30 Darrian Kelsey MD [address] [place] [id number] 06/14/2024 Darrian Kelsey MD [address] [place] [id number] 10/06/2024 Darrian Kelsey Acute asthma J45.909 Darrian Kelsey MD [address] [place] [id number] 11/24/2024 Darrian Kelsey MD [address] [place] [id number] 12/22/2024 Darrian Kelsey Sciatica M54.30 Darrian Kelsey MD [address] [place] [id number] 02/17/2025 Darrian Kelsey Assessments Encounter Date Diagnosis [...] Z00.00) labs reviewed and discussed with patient 02/28/2025 Blood tests for routine general physical examination (ICD-10 - Z00.00) 09/08/2024 Acute asthma (ICD-10 - J45.909) patient verbalized understandng of medication and directions for use 09/08/2024 Sinusitis (ICD-10 - J32.9) 12/20/2024 Sciatica (ICD-10 - M54.30) patient verbalized understandingof medication and directions for use 10/06/2024 Acute asthma (ICD-10 - J45.909) 12/22/2024 Sciatica (ICD-10 - M54.30) 03/07/2025 Dysthymia (ICD-10 - F34.1) stable, eflicia continue current regiment 03/07/2025 Depression screening (ICD-10 - Z13.31) negative screen 12/20/2024 Other patient verbali zed understanding of medication and directions for use Plan Of Treatment Pending Test Test Name Order Date US soft tiss head and/or neck 11/19/2023 Next Appt Details Provider Name:Darrian Gasca ier, 05/30/2025 08:30:00 AM, [address] [place] [address], Suite [facility], [place], [place], [phone], Provider Name:Darrian Fischer Elo ier, 03/01/2026 07:00:00 AM, [address] [place] [address], [place] [address], [place], [place], [phone], Provider Name:Darrian Gasca ier, 03/08/2026 08:00:00 AM, [address] [place] [address], [place] [address], [place], [place], [phone], Insurance Providers Payer Name Payer Address Payer Phone Subscriber Number Group Number Insured Name Patient Relationship to Insured Coverage Start Date Coverage End Date [employer] [address] [place], [place] [id number] Alivia Marrufo Self - patient is the insured Medical (General) History Medical History History ICD Code colonoscopy 2024 repeat in 10 years
--- OUTSIDE RECORDS SUMMARY | 2025-03-22 19:57 | XMS_ITS | Clinical Summary ---
Author Organization [facility] Address [address] [place] [address] Phone Care Team Providers Care Project Control Analyst Name Role Phone Oma Rodrigues MD Primary Care Provider [phone] Allergies Active Allergy Reactions Criticality Noted Date [...] Maintenance Results * COLONOSCOPY Anesthesia - MAC; [facility] ENDOSCOPY (05/06/2024 1:58 PM EST) Anatomical Region Laterality Modality Other 05/06/2024 1:34 PM EST Impressions 05/06/2024 1:59 PM EST - The examined portion of the ileum was normal. - Diverticulosis in the sigmoid colon. - Internal hemorrhoids. - No specimens collected. Recommendation: - Repeat colonoscopy in 10 years for screening purposes. Narrative 05/06/2024 1:59 PM EST [facility] GI Patient Name: Alivia Marrufo Procedure [...] malignant neoplasm of colon CPT copyright 2020 [employer]. All rights reserved. The codes documented in this report are preliminary and upon drapery counselor review may be revised to meet current compliance requirements. Oma Rodrigues MD 05/06/2024 1:59:00 PM This report has been signed electronically.mOa Rodrigues MD Number of Addenda: 0 Note Initiated On: 05/06/2024 1:34 PM Scope In: Scope Out: Endoscopy Department at [facility] - [address] [place] [phone] Procedure Note Oma Rodrigues MD - 05/06/2024 [facility] GI Patient Name: Alivia Marrufo Procedure [...] for malignantneoplasm of colon CPT copyright 2020 [employer]. All rights reserved. The codes documented in this report are preliminary and upon drapery counselor reviewmay be revised to meet current compliance requirements. Oma Rodrigues MD 05/06/2024 1:59:00 PM This report has been signed electronically.Oma Rodrigues MD Number of Addenda: 0 Note Initiated On: 05/06/2024 1:34 PM Scope In: Scope Out: Endoscopy Department at [facility] - [address] [place] [phone] IMPRESSION: - The examined portion of the ileum was normal. - Diverticulosis in the sigmoid colon. - Internal hemorrhoids. - No specimens collected. Recommendation: - Repeat colonoscopy in 10 years for screening purposes. Oma Rodrigues MD GI~PROCEDURE ORDERABLES Final Result from Last 3 Months or Most Recently Relevant to Health Maintenance Insurance [facility] Care Teams Project Control Analyst Relationship Specialty Start Date End Date Oma Rodrigues MD [address] [place] [id number] PCP - General Gastroenterology 04/29/24
== END 2025-03-22 15:43 | disposition home or self-care (01) ==
LOC: HO.HMGAL 15:42
PROVIDERS: PCP Internal Medicine; Visit Provider Registered Nurse Emergency
DX: J30.89 Other allergic rhinitis (principal)
CPT/HCPCS: 95117; 95165

== ENCOUNTER 2025-04-18 08:29 | Outpatient (AMB) | payer BC, SELFPAY ==
[2025-04-18 08:32] VITALS: BP 114/60; PULSE 83; O2SAT 95; BMI 35.4
--- NOTE | 2025-04-18 08:32 | MHC.OFFVIS ---
Vital Signs 04/18/25 08:32 Height 5 ft 4.5 in Weight 209 lb 7.026 oz BMI 35.4 BP 114/60 Blood Pressure Location Lt brachial Position Sitting Pulse 83 Pulse Source Pulse Oximeter Pulse Oximetry (%) 95 Oxygen Delivery Method Room Air Intake Visit Reasons: Asthma Client Service Manager Required: No Accompanied by: Self / Same As Patient Allergies cephalexin (From Keflex) Allergy (Intermediate, Verified 04/18/25 08:35) vomiting HPI Comments Details: The patient is a 59 year woman with a known history of asthma presenting with worsening respiratory symptoms. She has been noticing worsening shortness of breath even with minimal activity. She has a hard time with her grandchildren playing with them because she gets very winded. She does have asthma and she does have a rescue inhaler. Currently she is not on a maintenance inhaler. Sometime ago she was told that she had glaucoma. She has not followed up with the eye doctor in many years. She has lost some vision. Therefore will hold off on using any anticholinergics. The patient does have wheezing on exam and she did have tachycardia upon brief walking oximetry. She did have a chest x-ray back in 2018 that I personally reviewed demonstrating no acute disease. In addition to that she has not had pulmonary function studies although she has had difficult time in the past. In addition to that she has did complain of daytime drowsiness. Patient does have an elevated [place] score of 11/24. Therefore she needs to have home sleep study. The patient does have increased cardiovascular risk factors specially with her breathing and also tachycardia. Go ahead and request a home sleep study also PFTs and a chest x-ray. The patient will also undergo blood work. Also to note that she is getting allergy shots. She had been getting allergy shots for many years. Will go ahead and check her allergy levels. She may be a candidate for biologics if she continues to be symptomatic even on maximum respiratory therapy. 04/18/2025 the patient is here for pulmonary follow-up visit. Overall she is doing okay. She continues to have chest tightness and wheezing. She had been on the Symbicort. She can not take the muscarinic antagonist because of glaucoma. She does get relief from a rescue inhaler but she does need to use it regularly. The patient does still get allergy shots. We did do allergy testing and she does have an elevated IgE of 100. Therefore, because of her significant asthma in his significant allergies Xolair will be a good option. Her IgE levels were elevated eosinophil levels were normal. In addition to that we did look at her pulmonary function studies demonstrating moderate obstruction consistent with uncontrolled asthma. The patient is agreeable to Xolair. Will start the process in order to get that approved and see if this will be a good option for her. The patient also has been having snoring. She does have an elevated [place] score of 8/24. She did undergo a sleep study at home. Her AHI was up to 4.8. The patient did not have a good study though she has felt like the device swelling on her nose. Therefore, at some point if she continues to be symptomatic or if her symptoms worsen we can do an in-lab sleep study. [facility] Medical History (Updated 04/18/25 @ 20:17 by Nigel Hamilton MD) DEBI (obstructive sleep apnea) Allergies Asthma Social History Patient Tobacco Use Status: Never used Tobacco Review of Systems Const Reports daytime sleepiness, Reports difficulty sleeping and Reports snoring Eyes Reports change in vision ENT Reports nasal discharge Card Denies chest pain and Reports dyspnea on exertion Resp Reports cough, Reports dyspnea on exertion, Reports snoring and Reports wheezing GI Reports no additional complaints Musc Reports myalgias Skin/Breast Denies rash Neuro Reports no additional complaints Anthony/Lymph Reports no additional complaints Aller/Immun Reports wheezing Physical Exam Vital Signs: Last Vital Signs Pulse 83 04/18/25 08:32 BP 114/60 04/18/25 08:32 Pulse Ox 95 04/18/25 08:32 Oxygen Delivery Method Room Air 04/18/25 08:32 BMI result Body Mass Index 35.4 Const General: comfortable HEENT Head: Yes normocephalic Neck Neck: Yes supple Chest Chest palpation & inspection: normal inspection of the chest Resp Effort & Inspection: prolonged expiratory phase Auscultation: wheezes and diminished lung sounds Cardio Heart sounds: S1 normal heart sound present and S2 normal heart sound present GI Palpation (GI): Soft to palpation Skin General skin exam: no rashes or lesions noted Extrem General: Yes no clubbing, cyanosis or edema Office Procedures Flu Questionnaire Does the patient have a severe egg allergy?: No Does the patient have severe life threatening allergies?: No Does the patient have a fever or illness today?: No Has the patient ever had Guillain-Cebolla Syndrome?: No Has the patient ever had any past reaction to a flu shot?: No Immunizations Fluarix 0011-5450 (PF) 45 mcg (15 mcg x 3)/0.5 mL IM syringe Performing Provider: Nigel Hamilton MD Performing Location: [facility] Administered by: Glenys Woodward RN on 04/18/25 09:19 Dose Route Admin Location Dispensed Lot Number Expiration Date NDC Roving Weight Gauger 0.5 mL IM Left Deltoid 0.5 mL [id number] 11/21/25 [id number] Function Space VIS Given Date VIS Provided VIS Publication Date 04/18/25 Single Vaccine 24 Eligibility Eligibility Date Funding Source Not [facility] Eligible 04/18/25 Private Assessment & Plan Assessment & Plan (1) Asthma: Code(s): J45.909 - Unspecified asthma, uncomplicated Category: Medical Qualifiers: Asthma complication type: uncomplicated Asthma persistence: persistent Asthma severity: severe Qualified Code(s): J45.50 - Severe persistent asthma, uncomplicated (2) Allergies: Code(s): T78.40XA - Allergy, unspecified, initial encounter Category: Medical Qualifiers: Encounter type: initial encounter Qualified Code(s): T78.40XA - Allergy, unspecified, initial encounter (3) DEBI (obstructive sleep apnea): Code(s): G47.33 - Obstructive sleep apnea (adult) (pediatric) Category: Medical Plan continue Symbicort No LAMA/MARISOL due to h/o glaucoma Will benefit from Xolair (225mg SC [id number]) F/U 4-6 months Orders: Orders Influenza [id number] Immunization Today Z23 - Encounter for immunization Coding Level of Care Code Complex visit Add On G2211 Diagnoses Severe persistent asthma without complication J45.50 Asthma complication type: uncomplicated Asthma persistence: persistent Asthma severity: severe Allergy, initial encounter T78.40XA Encounter type: initial encounter DEBI (obstructive sleep apnea) G47.33 Time Spent (min) 16
--- OUTSIDE RECORDS SUMMARY | 2025-04-18 08:46 | XMS_ITS | Clinical Summary ---
Author Organization [facility] Address [address] [place] [address] Phone Care Team Providers Care Replenishment Merchandising Associate Name Role Phone Oma Rodrigues MD Primary Care Provider [phone] Allergies Active Allergy Reactions Criticality Noted Date [...] Depression Screening 05/25/2024 COVID-19 Vaccine (1 - 2024-2 6 season) 2025 Influenza Vaccine (#1) 2025 Colorectal [...] Maintenance Results * COLONOSCOPY Anesthesia - MAC; [facility] ENDOSCOPY (05/06/2024 1:58 PM EST) Anatomical Region Laterality Modality Other 05/06/2024 1:34 PM EST Impressions 05/06/2024 1:59 PM EST - The examined portion of the ileum was normal. - Diverticulosis in the sigmoid colon. - Internal hemorrhoids. - No specimens collected. Recommendation: - Repeat colonoscopy in 10 years for screening purposes. Narrative 05/06/2024 1:59 PM EST [facility] GI Patient Name: Alivia Marrufo Procedure [...] malignant neoplasm of colon CPT copyright 2020 [employer]. All rights reserved. The codes documented in this report are preliminary and upon divorce mediator review may be revised to meet current compliance requirements. Oma Rodrigues MD 05/06/2024 1:59:00 PM This report has been signed electronically.Oma Rodrigues MD Number of Addenda: 0 Note Initiated On: 05/06/2024 1:34 PM Scope In: Scope Out: Endoscopy Department at [facility] - [address] [place] [phone] Procedure Note Oma Rodrigues MD - 05/06/2024 [facility] GI Patient Name: Alivia Marrufo Procedure [...] for malignantneoplasm of colon CPT copyright 2020 [employer]. All rights reserved. The codes documented in this report are preliminary and upon divorce mediator reviewmay be revised to meet current compliance requirements. Oma Rodrigues MD 05/06/2024 1:59:00 PM This report has been signed electronically.Oma Rodrigues MD Number of Addenda: 0 Note Initiated On: 05/06/2024 1:34 PM Scope In: Scope Out: Endoscopy Department at [facility] - [address] [place] [phone] IMPRESSION: - The examined portion of the ileum was normal. - Diverticulosis in the sigmoid colon. - Internal hemorrhoids. - No specimens collected. Recommendation: - Repeat colonoscopy in 10 years for screening purposes. Oma Rodrigues MD GI~PROCEDURE ORDERABLES Final Result from Last 3 Months or Most Recently Relevant to Health Maintenance Insurance [facility] Care Teams Replenishment Merchandising Associate Relationship Specialty Start Date End Date Oma Rodrigues MD [address] [place] [phone] PCP - General Gastroenterology 04/29/24
== END 2025-04-18 09:08 | disposition home or self-care (01) ==
LOC: HO.HPS 08:29
PROVIDERS: PCP Internal Medicine; Visit Provider Hospitalist
DX: J45.50 Severe persistent asthma, uncomplicated (principal); T78.40XA Allergy, unspecified, initial encounter; G47.33 Obstructive sleep apnea (adult) (pediatric); Z23 Encounter for immunization
CPT/HCPCS: 99214

== ENCOUNTER → 2025-04-18 08:29 | Outpatient (BNVA) | payer BC, SELFPAY | PROVIDERS: PCP Internal Medicine; Visit Provider Hospitalist | DX: Z23 Encounter for immunization (principal) | CPT/HCPCS: 90471; 90656 ==